=== PATIENT | female | born 1930 | race Asian ===

== ENCOUNTER 2018-07-28 23:17 | Inpatient (IN) | payer MEDICARE, OTHER ==
[~2018-07-28] VITALS: Ht 152.4 cm; Wt 50.0 kg
--- NOTE | 2018-07-28 23:21 | ERD ---
ER Documentation Chief Complaint Chief Complaint SOB HPI The patient is a 80-year-old female, presenting to the ER because of acute ALOC per EMS, who gave her Narcan 2 mg IV b/c pint point pupils with mild response according to EMS. She follows commands but limited history is obtained from the patient until the daughter came to emergency department. She does not have ALOC, complains of dyspnea for the last couple days according to the daughter, does not have fever, cough, neck pain, chest pain, abdominal pain, vomiting. She does not smoke, drink Past medical history: Chronic kidney disease, CAD, hypertension Past surgical history: Pacemaker ROS All systems reviewed and are negative except as per history of present illness. Medications Home Meds Reported Medications Citric Acid Monohydrate (Citric Acid) 100 Gm Granules, 15 ML MC 07/29/18 Nifedipine* (Nifedipine ER*) 30 Mg Tablet.sa, 30 MG PO DAILY, TAB.SA 07/29/18 Hydralazine Hcl* (Hydralazine Hcl*) 50 Mg Tab, 50 MG PO TID, #90 TAB 07/29/18 Simvastatin* (Zocor*) 20 Mg Tablet, 20 MG PO QHS, #30 TAB 07/29/18 Losartan Potassium* (Losartan Potassium*) 25 Mg Tablet, 25 MG PO DAILY, TAB 07/29/18 Docusate Sodium* (Docusate Sodium*) 100 Mg Capsule, 100 MG PO BID, #60 CAP 07/29/18 Omeprazole* (Omeprazole*) 20 Mg Capsule.dr, 20 MG PO BID, #60 CAP 07/29/18 Carvedilol* (Carvedilol*) 25 Mg Tablet, 25 MG PO BID, #60 TAB 07/29/18 Allergies Allergies: Coded Allergies: No Known Allergy (Unverified , 07/29/18) Physical Exam Vitals Vital Signs Date Temp Pulse Resp B/P (MAP) Pulse Ox O2 O2 Flow FiO2 Time Delivery Rate 07/29/18 60 16 141/67 98 Nasal 2.0 01:30 (91) Cannula 07/28/18 58 19 127/95 98 Non 12.0 23:35 (106) Rebreather 07/28/18 98.9 65 16 129/75 100 23:20 (93) Physical Exam Const: No acute distress. Head: Atraumatic. Eyes: Normal Conjunctiva.small pupils, no nystagmus ENT: Normal External Ears, Nose and Mouth. Neck: Full range of motion. No meningismus. Resp: Clear to auscultation bilaterally. Cardio: Irregularly irregular Abd: Soft, non distended, normal bowel sounds, non tender. Skin: No petechiae or rashes. Back: No midline or flank tenderness. Ext: No cyanosis, or edema. Neur: Awake and alert. No focal deficit. Follow commands. Limited Psych: Unable to perform due to her condition Result Diagram: 07/28/18232507/28/182325 Results 24 hrs Laboratory Tests Test 07/28/18 23:26 07/28/18 23:27 07/28/18 23:31 07/29/18 00:49 White Blood Count 7.7 10^3/ul Red Blood Count 2.67 10^6/ul Hemoglobin 8.2 g/dl Hematocrit 24.7 % Mean Corpuscular 92.5 fl Volume Mean Corpuscular 30.7 pg Hemoglobin Mean Corpuscular 33.2 g/dl Hemoglobin Concen t Red Cell 14.1 % Distribution Width Platelet Count 144 10^3/UL Mean Platelet 9.6 fl Volume Immature 0.300 % Granulocytes % Neutrophils % 56.0 % Lymphocytes % 26.2 % Monocytes % 9.9 % Eosinophils % 7.1 % Basophils % 0.5 % Nucleated Red 0.0 /100WBC Blood Cells % Immature 0.020 10^3/ul Granulocytes # Neutrophils # 4.3 10^3/ul Lymphocytes # 2.0 10^3/ul Monocytes # 0.8 10^3/ul Eosinophils # 0.6 10^3/ul Basophils # 0.0 10^3/ul Nucleated Red 0.0 10^3/ul Blood Cells # Prothrombin Time 12.9 Sec Prothrombin Time 1.0 Ratio INR International 0.96 Normalized Ratio Activated 35.6 Sec Partial Thrombopl ast Time Sodium Level 132 mmol/L Potassium Level 4.5 mmol/L Chloride Level 101 mmol/L Carbon Dioxide 19 mmol/L Level Anion Gap 12 Blood Urea 61 mg/dl Nitrogen Creatinine 2.29 mg/dl Est Glomerular mL/min Filtrat Rate mL/min Glucose Level 113 mg/dl Calcium Level 9.2 mg/dl Total Bilirubin 0.1 mg/dl Direct Bilirubin 0.00 mg/dl Indirect 0.1 mg/dl Bilirubin Aspartate Amino 36 IU/L Transf (AST/SGOT) Alanine 33 IU/L Aminotransferase (ALT/SGPT) Alkaline 56 IU/L Phosphatase Troponin I < 0.012 ng/ml Total Protein 6.9 g/dl Albumin 3.8 g/dl Globulin 3.10 g/dl Albumin/Globulin 1.22 Ratio Urine Color YELLOW Urine Clarity CLEAR Urine pH 5.0 Urine Specific 1.011 [place] Urine Ketones NEGATIVE mg/dL Urine Nitrite NEGATIVE mg/dL Urine Bilirubin NEGATIVE mg/dL Urine NEGATIVE mg/dL Urobilinogen Urine Leukocyte 1+ Fabien/ul Esterase Urine Microscopic 0 /HPF RBC Urine Microscopic 9 /HPF WBC Urine Hemoglobin NEGATIVE mg/dL Urine Glucose NEGATIVE mg/dL Urine Total 2+ mg/dl Protein POC Venous 0.8 mmol/L Lactate Bedside Urine pH 5.5 (LAB) Bedside Urine 2+ Protein (LAB) Bedside Urine Negative Glucose (UA) Bedside Urine Negative Ketones (LAB) Bedside Urine Negative Blood Bedside Urine Negative Nitrite (LAB) Bedside Urine 1+ Leukocyte Esteras e (L Current Medications Medications Dose Sig/Nely Start Time Status Last (Trade) Ordered Route PRN Stop Time Admin Dose Reason Admin Naloxone 2 mg ONCE ONCE 07/28/18 DC 07/28/18 HCl IV 23:30 23:33 (Narcan) 07/28/18 23:31 Ceftriaxone 50 ml @ ONCE ONCE 07/29/18 DC 07/29/18 Sodium 100 mls/hr IVPB 01:00 01:16 07/29/18 01:29 Procedures/[place] [id number] Radiology Main Line: [phone] DIAGNOSTIC IMAGING REPORT Patient: MURIEL AJ : 1930 Age: 88 Sex: F MR #: [id number] DOS: 07/28/18 2321 Ordering MD: ALEKSANDRA WONG MD Location: E/R Room/Bed: PROCEDURE: CT Head without contrast. CLINICAL INDICATION: Altered level consciousness TECHNIQUE: Continuous axial CT images were obtained from the base of skull to the vertex. No contrast was administered. The calculated radiation dose measures 634 mGy centimeters. The CTDI measures 36 mGy One or more of the following dose reduction techniques were used: Automated exposure control. Adjustment of the mA and/or kV according to patient size. Use of iterative reconstruction technique. DICOM Images are available COMPARISON: None available FINDINGS: There is volume loss and encephalomalacia involving the left occipital lobe and posterior temporal lobe, consistent with old left [employer]CH[employer] TRA[employer] territory infarct. There is mild to moderate diffuse cerebral volume loss. The ventricles are symmetric and normal in configuration. There is no mass effect or midline shift. There is no abnormal intra-axial or extra-axial fluid collection. There is no evidence of intracranial hemorrhage. There are scattered areas of decreased attenuation in the supratentorial white matter, consistent with moderate small vessel ischemic changes. There is prominent atherosclerotic vascular calcification. The bony calvarium is intact. The orbital soft tissue contents are unremarkable. There is mucosal thickening in the paranasal sinuses.. IMPRESSION: 1. Mild to moderate age related cerebral volume loss. Moderate small vessel ischemic changes. 2. Prominent atherosclerotic vascular calcification. 3. 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 4. Chronic sinusitis change. 5. No mass effect or acute intracranial bleed. RPTAT: HBST .Henry Puente MD, MD Date Time Electronically viewed and signed by .Henry Puente MD, MD on 07/29/2018 00:11 .T/ CC: ALEKSANDRA WONG MD [id number] [place] [id number] Radiology Main Line: [phone] DIAGNOSTIC IMAGING REPORT Patient: MURIEL AJ : 1930 Age: 88 Sex: F MR #: [id number] DOS: 07/28/18 2321 Ordering MD: ALEKSANDRA WONG MD Location: E/R Room/Bed: PROCEDURE: XR Chest. CLINICAL INDICATION: Possible sepsis. TECHNIQUE: Single frontal view of the chest. COMPARISON: None. FINDINGS: Left anterior chest wall single chamber cardiac pacer seen with the tip over expected location the right atrium. The cardiac pacing lead appears intact. Cardiomegaly with atherosclerotic calcifications in the thoracic aorta. Mild bibasilar atelectasis versus airspace disease, with small bilateral pleural effusions. The lungs are otherwise clear. No signs of pneumothorax are seen. The osseous structures and soft tissues are unremarkable. IMPRESSION: 1. Cardiomegaly with atherosclerotic calcifications in the thoracic aorta. 2. Mild bibasilar atelectasis versus airspace disease, with small bilateral pleural effusions. RPTAT: UU Aldair Rodriguez Physician Date Time Electronically viewed and signed by Aldair Rodriguez Physician on 07/29/2018 00:47 RS/ CC: ALEKSANDRA WONG MD [id number] EKG: Read by emergency physician Rate/Rhythm: Atrial Fibrillation 61 beats per min QRS, ST, T-waves: No ST elevation, inferior anterior lateral ST and T abnormality Impression: Abnormal EKG MEDICAL MAKING DECISION: The patient is a 88-year-old female, presenting to the ER because of possible acute encephalopathy per EMS, she was treated with Narcan 2 mg IV empirically with no response. Her daughter came to the ER, she became more coherent and was able to speak, according to the daughter she is herself. She was treated with Rocephin IV for acute cystitis The differential diagnoses considered include but are not limited to TIA, anxiety attack, panic attack, asthma, COPD, pneumonia, pulmonary embolus, pleural effusion, congestive heart failure. Departure Diagnosis: Primary Impression: Dyspnea Additional Impressions: UTI (urinary tract infection) Anemia Condition: Stable Comments I discussed the findings with the patient. I discussed the patient with the hospitalist Dr Nicolas at 3 am. who was made aware of the lab, the treatment, the patient condition. The patient is admitted to [facility] Disclaimer: Inadvertent spelling and grammatical errors are likely due to EHR/dictation software use and do not reflect on the overall quality of patient care. Also, please note that the electronic time recorded on this note does not necessarily reflect the actual time of the patient encounter. ALEKSANDRA WONG MD Jul 28, 2018 23:21
[2018-07-28] MEDS ORDERED: NALOXONE 2 MG SYG IV ONE (23:30)
[2018-07-29] VITALS (13 sets, daily range): BP systolic 144–186; BP diastolic 73–94; PULSE 60–75; RESP 18–20; Ht 152.4 cm; Wt 50.0 kg
[2018-07-29] MEDS ORDERED: CEFTRIAXONE 1 GM/50 ML (PMX) 50 ML IVPB ONE (01:00)
[2018-07-29] MEDS ORDERED: LOSA25TA12 PO (01:50)
[2018-07-29] MEDS ORDERED: DOCU-159 PO (01:50)
[2018-07-29] MEDS ORDERED: OMEP20CA16 PO (01:50)
[2018-07-29] MEDS ORDERED: CARV25TA79 PO (01:50)
[2018-07-29] MEDS ORDERED: HYDR-3672 PO (01:50)
[2018-07-29] MEDS ORDERED: NIFE30TA23 PO (01:50)
[2018-07-29] MEDS ORDERED: SIMV20TA PO (01:50)
[2018-07-29] MEDS ORDERED: [UNRECOGNIZED DRUG - CODE] MC (01:58)
[2018-07-29] MEDS ORDERED: ALBUTEROL/IPRATROPIUM (NEB) 3 ML AMP HHN PRN (05:30)
[2018-07-29] MEDS ORDERED: NACL 0.9% 3 ML SYG IV SCH (05:30)
[2018-07-29] MEDS ORDERED: ONDANSETRON 4 MG INJ IV PRN (05:30)
[2018-07-29] MEDS ORDERED: ACETAMINOPHEN 325 MG TAB PO PRN (05:30)
[2018-07-29] MEDS: PANTOPRAZOLE (EC) 40 MG TAB PO SCH ×2 (06:23→17:53)
--- NOTE | 2018-07-29 07:03 | NUR ---
EOSS RECEIVED PATIENT FROM ICU WITH NO DISTRESS,.DENIES PAIN OR RESPIRATORY DISCOMFORT.ON 2L/NC.CALL LIGHT WITHIN REACH.BED ALARM ON.WILL MONITOR CLOSELY.
[2018-07-29] MEDS: DOCUSATE SODIUM 100 MG CAP PO SCH ×2 (08:37→20:39)
[2018-07-29] MEDS: LOSARTAN 25 MG TAB PO SCH (08:37)
[2018-07-29] MEDS: CEFTRIAXONE 1 GM/50 ML (PMX) 50 ML IVPB SCH (08:38)
[2018-07-29] MEDS: HEPARIN 5,000 UNIT/1 ML VIAL SC SCH ×2 (08:44→20:56)
[2018-07-29] MEDS ORDERED: NIFEdipine (XL) 30 MG TAB PO SCH (09:00)
[2018-07-29] MEDS ORDERED: NON-FORMULARY/PATIENT OWN MED (Omeprazole* 20 MG) PO SCH (09:00)
--- NOTE | 2018-07-29 09:15 | HP ---
Date/Time of Note Date/Time of Note DATE: 07/29/18 TIME: 09:08 Assessment/Plan VTE Prophylaxis Pharmacological prophylaxis: heparin Lines/Catheters IV Catheter Type (from Nrs): Saline Lock Urinary Cath still in place: No Assessment/Plan Assessment/Plan 1. COPD exacerbation -Supplemental oxygen, bronchodilators, steroid 2. Hypertension: Adjust antihypertensive as needed 3. CKD: Monitor kidney function closely. Consider nephrology consult 4. History of pacemaker 5. Normocytic anemia: Check iron profile and FOBT to workup for iron deficiency and GI bleed. No mentioning of GI bleed or dark stool 6. UTI: -IV antibiotic -Follow-up culture result 7. Old CVA (per CT) -Continue home statin. Consider adding aspirin Result Diagram: 07/28/18 2326 07/28/18 2326 Results 24hrs Laboratory Tests Test 07/28/18 23:26 07/28/18 23:27 07/28/18 23:31 07/29/18 00:49 White Blood Count 7.7 Red Blood Count 2.67 L Hemoglobin 8.2 L Hematocrit 24.7 L Mean Corpuscular 92.5 Volume Mean Corpuscular 30.7 Hemoglobin Mean Corpuscular 33.2 Hemoglobin Concent Red Cell 14.1 Distribution Width Platelet Count 144 Mean Platelet Volume 9.6 Immature 0.300 Granulocytes % Neutrophils % 56.0 Lymphocytes % 26.2 Monocytes % 9.9 Eosinophils % 7.1 H Basophils % 0.5 Nucleated Red Blood 0.0 Cells % Immature 0.020 Granulocytes # Neutrophils # 4.3 Lymphocytes # 2.0 Monocytes # 0.8 Eosinophils # 0.6 H Basophils # 0.0 Nucleated Red Blood 0.0 Cells # Prothrombin Time 12.9 Prothrombin Time 1.0 Ratio INR International 0.96 Normalized Ratio Activated 35.6 H Partial Thromboplast Time Sodium Level 132 L Potassium Level 4.5 Chloride Level 101 Carbon Dioxide Level 19 L Anion Gap 12 Blood Urea Nitrogen 61 H Creatinine 2.29 H Est Glomerular Filtrat Rate mL/min Glucose Level 113 Calcium Level 9.2 Total Bilirubin 0.1 L Direct Bilirubin 0.00 Indirect Bilirubin 0.1 Aspartate Amino 36 Transf (AST/SGOT) Alanine 33 Aminotransferase (AL T/SGPT) Alkaline Phosphatase 56 Troponin I < 0.012 Total Protein 6.9 Albumin 3.8 Globulin 3.10 Albumin/Globulin 1.22 Ratio Urine Color YELLOW Urine Clarity CLEAR Urine pH 5.0 Urine Specific 1.011 [place] Urine Ketones NEGATIVE Urine Nitrite NEGATIVE Urine Bilirubin NEGATIVE Urine Urobilinogen NEGATIVE Urine Leukocyte 1+ H Esterase Urine Microscopic 0 RBC Urine Microscopic 9 H WBC Urine Hemoglobin NEGATIVE Urine Glucose NEGATIVE Urine Total Protein 2+ H POC Venous Lactate 0.8 Bedside Urine pH 5.5 (LAB) Bedside Urine 2+ H Protein (LAB) Bedside Urine Negative Glucose (UA) Bedside Urine Negative Ketones (LAB) Bedside Urine Blood Negative Bedside Urine Negative Nitrite (LAB) Bedside Urine 1+ H Leukocyte Esterase (L Test 07/29/18 05:30 Lactic Acid Level 0.7 Creatine Kinase 90 Creatine Kinase 1.9 Index Creatinine Kinase MB 1.73 (Mass) Troponin I < 0.012 HPI/ROS Admit Date/Time Admit Date/Time Jul 29, 2018 at 02:59 Hx of Present Illness This is an 88-year-old female with a history of hypertension, dyslipidemia, CAD, COPD, CKD, old CVA (per CT) who presents the ER for shortness of breath and generalized weakness/lethargy. Symptom has been progressively getting worse for the past 2 days or so. She denies chest pain. According to ER notes, there seems to be a confusion with EMS thinking the patient's lethargy was secondary to [place] OD for which she was given Narcan without any change. When she presented to ER, vitals were stable. Chest x-ray shows Mild bibasilar atelectasis versus airspace disease, with small bilateral pleural effusions. UA consistent with UTI. On further questioning, patient reported frequent urination every 2 hours or so recently. PMH/Family/Social Past Medical History Medical History: other (See HPI) Medications Current Medications IV Flush (NS 3 ml) 3 ml PER PROTOCOL IV ; Start 07/29/18 at 05:30 Ondansetron HCl (Zofran Inj) 4 mg Q6H PRN IV NAUSEA AND/OR VOMITING; Start 07/29/18 at 05:30 Acetaminophen (Tylenol Tab) 650 mg Q6H PRN PO PAIN LEVEL 1-3 OR FEVER; Start 07/29/18 at 05:30 Heparin Sodium (Porcine) (Heparin (5000 Units/1ml)) 5,000 unit Q12 SC Last administered on 07/29/18at 08:44; Admin Dose 5,000 UNIT; Start 07/29/18 at 09:00 Albuterol/ Ipratropium (Duoneb) 3 ml Q2H RESP THERAPY PRN HHN SHORTNESS OF BREATH; Start 07/29/18 at 05:30 Carvedilol (Coreg) 25 mg BID PO Last administered on 07/29/18at 08:37; Admin Dose 25 MG; Start 07/29/18 at 09:00 Docusate Sodium (Colace) 100 mg BID PO Last administered on 07/29/18at 08:37; Admin Dose 100 MG; Start 07/29/18 at 09:00 Hydralazine HCl (Apresoline) 50 mg TID PO Last administered on 07/29/18 08:36; Admin Dose 50 MG; Start 07/29/18 at 09:00 Losartan Potassium (Cozaar) 25 mg DAILY PO Last administered on 07/29/18 08:37; Admin Dose 25 MG; Start 07/29/18 at 09:00 Nifedipine (Procardia Xl) 30 mg DAILY PO Last administered on 07/29/18at 08:36; Admin Dose 30 MG; Start 07/29/18 at 09:00 Ceftriaxone Sodium 50 ml @ 100 mls/hr Q24H IVPB Last administered on 07/29/18at 08:38; Admin Dose 100 MLS/HR; Start 07/29/18 at 09:00 Pantoprazole (Protonix Tab) 40 mg BID@0600,1800 PO Last administered on 07/29/18at 06:23; Admin Dose 40 MG; Start 07/29/18 at 06:00 Atorvastatin Calcium (Lipitor) 10 mg DAILY@21 PO ; Start 07/29/18 at 21:00 Coded Allergies: No Known Allergy (Unverified , 07/29/18) Past Surgical History Past Surgical Hx: other (See HPI) Family History Significant Family History: no pertinent family hx Social History Alcohol Use: other Smoking Status: Unknown if ever smoked Drug Use: none Exam/Review of Systems Vital Signs Vitals Vital Signs Date Temp Pulse Resp B/P (MAP) Pulse Ox O2 O2 Flow FiO2 Time Delivery Rate 07/29/18 64 08:43 07/29/18 Nasal 2.0 08:18 Cannula 07/29/18 97.8 19 171/89 98 07:37 (116) Exam Constitutional: other (No acute distress, appears to be weak but fully arousable and answering questions appropriately) Head: normocephalic, atraumatic Eyes: EOMI, PERRL Respiratory: clear to auscultation, normal air movement Gastrointestinal: soft, non-tender Extremities: normal pulses GARLAND GUTIERREZ MD Jul 29, 2018 09:15
[2018-07-29] MEDS ORDERED: CEFTRIAXONE 1 GM/50 ML (PMX) 50 ML IVPB SCH (09:30)
[2018-07-29] MEDS ORDERED: METHYLPREDNISOLONE 40 MG INJ IV SCH (09:30)
--- NOTE | 2018-07-29 09:45 | NUR ---
PT evaluation Therapy day number 1 Evaluation Start Time 09:45 Evaluation End Time 10:45 Evaluation Total Time 60 min Subjective Denies pain Pain Scale NUMERIC Pain Intensity 0 (0-10) Patient Stated Goal for Pain Relief 0 (0-10) Pain Level Comment occasional pain in B ankles but none currently Pre Treatment Vital Signs Stable Yes - BP 150/73 Supine to Sit Minimum Assist Transfer Sit to Stand Ability Moderate Assist Bed Mobility Sit to Supine Minimum Assist Bed Transfer Ability Minimum Assist Chair Transfer Ability Minimum Assist Additional Mobility Comments min A with use of FWW Gait Assist Levels Minimum Assist Assistive Devices Front Wheel Walker Ambulation Distance 25 feet Additional Gait Comments slow samuel, requires FWW management, forward posture Static Sitting Balance Fair Dynamic Sitting Balance Fair Standing Static Balance Fair Dynamic Standing Balance Poor Additional Balance Assessments Comments requires use of FWW for stability Safety Judgement Fair Activity Tolerance Fair Equipment Present IV pump Post Treatment Pain Intensity 0 0-10 Quality Indicators SOB Upon Exertion Additional Post Treatment Comment See note Total Minutes 60 Total Units 4 PT Technical Record Comment 88 yo female presents with shortness of breath and generalized weakness. Chest x-ray shows Mild bibasilar atelectasis versus airspace disease, with small bilateral pleural effusions PMH: hypertension, dyslipidemia, CAD, COPD, CKD, old CVA (per CT) PLOF: Patient reports living with daughter in 2 story home however home alone for majority of the day. Patient reports performing stairs but requires "a lot of time" Patient reports has been "spending a lot of time in bed" Precautions: fall risk, monitor vitals S: Patient in bed, agreeable to PT evaluation. Pt cleared for activity per RN O: PT evaluation completed, pt returned back to bed following therapy intervention with call light within reach and bed alarm activated. Spoke to RN regarding pt response to activity and PT plan of care. No reports of pain, dizziness, or shortness of breath however pt visibly SOB with exertion. Pt on 1L throughout, 97% prior, 80% with activity but improves to baseline within 30 seconds. A: Patient presents with fair mobility throughout however limited secondary to endurance and profound deconditioning. patient requires substantial assist with sit to stand and has balance concerns with transfers likely due to patient reported arthritis. Patient reports with slow samuel throughout with no loss of balance. Patient could benefit from skilled inpatient PT to improve strength, endurance, and functional mobility P: progress gait as tolerated, sit to stands and stairs when appropriate Recommendation: home vs SNF based on patient progress with therapy and availability of assist at DC once medically cleared by MD. Patient could benefit from FWW for mobility however will assess with stair training.
--- NOTE | 2018-07-29 10:30 | NUR ---
patient alert and oriented, with O2 at 2L NC, respiration even, Vpae in the monitor, up with assist, had PT eval done and tolerated well. will transfer to [facility], message left with daughter Sania. Addendum: 07/29/18 at 1040 by TAZ CONTRERAS RN report given to Nelson from [facility].
--- NOTE | 2018-07-29 13:57 | PN ---
Date/Time of Note Date/Time of Note DATE: 07/29/18 TIME: 13:55 Assessment/Plan VTE Prophylaxis Risk score (from Ns)>0 risk: 5 SCD applied (from Ns): Yes Pharmacological prophylaxis: heparin Lines/Catheters IV Catheter Type (from Nrs): Saline Lock Urinary Cath still in place: No Assessment/Plan Assessment/Plan 1. COPD exacerbation, supplemental oxygen, bronchodilators, solumedrol 2. Hypertension, patient is taking nifedipine 60 mg qam and 30 mg qpm at home, change it to 90 mg po daily 3. CKD: Monitor kidney function closely 4. History of pacemaker 5. Normocytic anemia, CKD related, follow up with H/H 7. UTI: rocephin 8. Old CVA (per CT) 9. Dyslipidemia, on statin 10. DVT prophylaxis: heparin sq Result Diagram: 07/28/186 07/28/18 2326 Results 24hrs Laboratory Tests Test 07/28/18 23:26 07/28/18 23:27 07/28/18 23:31 07/29/18 00:49 White Blood Count 7.7 Red Blood Count 2.67 L Hemoglobin 8.2 L Hematocrit 24.7 L Mean Corpuscular 92.5 Volume Mean Corpuscular 30.7 Hemoglobin Mean Corpuscular 33.2 Hemoglobin Concent Red Cell 14.1 Distribution Width Platelet Count 144 Mean Platelet Volume 9.6 Immature 0.300 Granulocytes % Neutrophils % 56.0 Lymphocytes % 26.2 Monocytes % 9.9 Eosinophils % 7.1 H Basophils % 0.5 Nucleated Red Blood 0.0 Cells % Immature 0.020 Granulocytes # Neutrophils # 4.3 Lymphocytes # 2.0 Monocytes # 0.8 Eosinophils # 0.6 H Basophils # 0.0 Nucleated Red Blood 0.0 Cells # Prothrombin Time 12.9 Prothrombin Time 1.0 Ratio INR International 0.96 Normalized Ratio Activated 35.6 H Partial Thromboplast Time Sodium Level 132 L Potassium Level 4.5 Chloride Level 101 Carbon Dioxide Level 19 L Anion Gap 12 Blood Urea Nitrogen 61 H Creatinine 2.29 H Est Glomerular Filtrat Rate mL/min Glucose Level 113 Calcium Level 9.2 Total Bilirubin 0.1 L Direct Bilirubin 0.00 Indirect Bilirubin 0.1 Aspartate Amino 36 Transf (AST/SGOT) Alanine 33 Aminotransferase (AL T/SGPT) Alkaline Phosphatase 56 Troponin I < 0.012 Total Protein 6.9 Albumin 3.8 Globulin 3.10 Albumin/Globulin 1.22 Ratio Urine Color YELLOW Urine Clarity CLEAR Urine pH 5.0 Urine Specific 1.011 [place] Urine Ketones NEGATIVE Urine Nitrite NEGATIVE Urine Bilirubin NEGATIVE Urine Urobilinogen NEGATIVE Urine Leukocyte 1+ H Esterase Urine Microscopic 0 RBC Urine Microscopic 9 H WBC Urine Hemoglobin NEGATIVE Urine Glucose NEGATIVE Urine Total Protein 2+ H POC Venous Lactate 0.8 Bedside Urine pH 5.5 (LAB) Bedside Urine 2+ H Protein (LAB) Bedside Urine Negative Glucose (UA) Bedside Urine Negative Ketones (LAB) Bedside Urine Blood Negative Bedside Urine Negative Nitrite (LAB) Bedside Urine 1+ H Leukocyte Esterase (L Test 07/29/18 05:30 07/29/18 10:58 Lactic Acid Level 0.7 Creatine Kinase 90 79 Creatine Kinase 1.9 1.6 Index Creatinine Kinase MB 1.73 1.23 (Mass) Troponin I < 0.012 < 0.012 Subjective 24 Hr Interval Summary Free Text/Dictation weak, shortness of breath on minimal exertion Exam/Review of Systems Vital Signs Vitals Vital Signs Date Temp Pulse Resp B/P (MAP) Pulse Ox O2 O2 Flow FiO2 Time Delivery Rate 07/29/18 98.2 65 18 185/94 98 12:11 (124) 07/29/18 Nasal 2.0 08:18 Cannula Exam Constitutional: alert, oriented, well developed Psych: no complaints, nl mood/affect Head: normocephalic, atraumatic Eyes: nl conjunctiva, EOMI, nl lids ENMT: nl external ears & nose, nl lips & teeth, nl nasal mucosa & septum Neck: supple, non-tender Respiratory: diminished breath sounds Cardiovascular: regular rate and rhythm, nl pulses; No bruits, No diastolic murmur, No edema, No gallop, No irregular rhythm, No jugular venous distention (JVD), No murmurs/extra sounds, No rub, No systolic murmur, No S3, No S4, No other Gastrointestinal: soft, nl liver, spleen, non-tender Musculoskeletal: nl extremities to inspection Extremities: normal pulses; No calf tenderness, No cyanosis, No clubbing, No edema, No pitting pedal edema, No palpable cord, No tenderness, No other Neurological: RECONSTRUCTIVE DENTIST II-XII intact, nl mental status, nl speech, nl strength Medications Medications Current Medications IV Flush (NS 3 ml) 3 ml PER PROTOCOL IV ; Start 07/29/18 at 05:30 Ondansetron HCl (Zofran Inj) 4 mg Q6H PRN IV NAUSEA AND/OR VOMITING; Start 07/29/18 at 05:30 Acetaminophen (Tylenol Tab) 650 mg Q6H PRN PO PAIN LEVEL 1-3 OR FEVER; Start 07/29/18 at 05:30 Heparin Sodium (Porcine) (Heparin (5000 Units/1ml)) 5,000 unit Q12 SC Last administered on 07/29/18 08:44; Admin Dose 5,000 UNIT; Start 07/29/18 at 09:00 Albuterol/ Ipratropium (Duoneb) 3 ml Q2H RESP THERAPY PRN HHN SHORTNESS OF BREATH; Start 07/29/18 at 05:30 Carvedilol (Coreg) 25 mg BID PO Last administered on 07/29/18 08:37; Admin Dose 25 MG; Start 07/29/18 at 09:00 Docusate Sodium (Colace) 100 mg BID PO Last administered on 07/29/18 08:37; Admin Dose 100 MG; Start 07/29/18 at 09:00 Hydralazine HCl (Apresoline) 50 mg TID PO Last administered on 07/29/18 12:13; Admin Dose 50 MG; Start 07/29/18 at 09:00 Losartan Potassium (Cozaar) 25 mg DAILY PO Last administered on 07/29/18 08:37; Admin Dose 25 MG; Start 07/29/18 at 09:00 Nifedipine (Procardia Xl) 30 mg DAILY PO Last administered on 07/29/18 08:36; Admin Dose 30 MG; Start 07/29/18 at 09:00 Ceftriaxone Sodium 50 ml @ 100 mls/hr Q24H IVPB Last administered on 07/29/18 08:38; Admin Dose 100 MLS/HR; Start 07/29/18 at 09:00 Pantoprazole (Protonix Tab) 40 mg BID@0600,1800 PO Last administered on 06:23; Admin Dose 40 MG; Start 07/29/18 at 06:00 Atorvastatin Calcium (Lipitor) 10 mg DAILY@21 PO ; Start 07/29/18 at 21:00 Methylprednisolone Sodium Succinate (Solu-Medrol) 40 mg DAILY IV Last administered on 07/29/18at 09:35; Admin Dose 40 MG; Start 07/29/18 at 09:30; Stop 08/01/18 at 09:00 UNA GAFFNEY MD Jul 29, 2018 13:57
[2018-07-29] MEDS: METHYLPREDNISOLONE 40 MG INJ IV SCH ×2 (14:48→21:02)
--- NOTE | 2018-07-29 18:47 | NUR ---
RN NOTE PT IS STABLE CONDITION , NO ACUTE DISTRESS NOTED , PT HEARD OF HEARING , COOPERATIVE . USING BED SIDE COMMODE , RECEIVING PT FROM 529 THIS AM .
[2018-07-29] MEDS: ATORVASTATIN 10 MG TAB PO SCH (20:39)
[2018-07-29] MEDS ORDERED: NON-FORMULARY/PATIENT OWN MED (Simvastatin* (Zocor*) 20 MG) PO SCH (21:00)
[2018-07-30] VITALS (11 sets, daily range): BP systolic 150–189; BP diastolic 65–88; PULSE 59–65; RESP 17–20
[2018-07-30] MEDS ORDERED: hydrALAzine 20 MG INJ IV ONE (04:30)
[2018-07-30] MEDS: METHYLPREDNISOLONE 40 MG INJ IV SCH ×3 (05:57→21:34)
[2018-07-30] MEDS: PANTOPRAZOLE (EC) 40 MG TAB PO SCH ×2 (05:57→18:36)
--- NOTE | 2018-07-30 06:15 | NUR ---
EOSS: Pt. a/o x3. Pt able to use bed side commode with assist. Skin kept clean, dry, and intact. Hourly rounding completed. Bed in lowest position, call light within reach, bed alarm on. Pt. BP 177/81 @0400, notified Dr. Nicolas. Hydralazine 10mg IV X1 given. BP 165/85 @0600. Pt slept comfortably throughout shift, no complaints of pain. All needs met and attended too. Will endorse continuity of care to day shift.
[2018-07-30] MEDS: LOSARTAN 25 MG TAB PO SCH ×2 (08:20→21:36)
[2018-07-30] MEDS: DOCUSATE SODIUM 100 MG CAP PO SCH ×2 (08:20→21:35)
[2018-07-30] MEDS: CEFTRIAXONE 1 GM/50 ML (PMX) 50 ML IVPB SCH (08:21)
[2018-07-30] MEDS: HEPARIN 5,000 UNIT/1 ML VIAL SC SCH ×2 (08:31→21:49)
[2018-07-30] MEDS ORDERED: NIFEdipine (XL) 90 MG TAB PO SCH (09:00)
--- NOTE | 2018-07-30 12:05 | NUR ---
PT NOTE [facility] Patient: Tiffanie Troncoso : 1930 Age/Sex: 88/F Unit#: [id number] Room/Bed: 620/A User: Tarah West PTA Date: 07/30/18 12:05 Type: PT Technical Record Therapy day number 2 Subjective Denies pain Pain Scale NUMERIC Pain Intensity 0 (0-10) Patient Stated Goal for Pain Relief 0 (0-10) Pain Level Comment denied pain Pre Treatment Vital Signs Stable Yes - See PT note Transfer Training Start Time 11:12 Supine to Sit Minimum Assist Transfer Sit to Stand Ability Minimum Assist Bed Mobility Sit to Supine Minimum Assist Bed Transfer Ability Minimum Assist Chair Transfer Ability Minimum Assist Transfer Training End Time 11:40 Total Transfer Training Time 28 min (8-127) Gait Training Start Time 11:40 Gait Assist Levels Contact Guard Assist Assistive Devices Front Wheel Walker Ambulation Distance 160 feet Additional Gait Comments slow, reciprocal pattern, forward posture Gait Training End Time 12:05 Total Gait Training Treatment Time 25 min (8-127) Static Sitting Balance Fair plus Dynamic Sitting Balance Fair plus Standing Static Balance Fair Dynamic Standing Balance Fair Additional Balance Assessments Comments FWW Safety Judgement Fair Activity Tolerance Fair Equipment Present IV pump Additional Equipment Present 2L O2 via NC Post Treatment Pain Intensity 0 0-10 Quality Indicators SOB Upon Exertion Total Treament Time 53 min (8-127) Total Minutes 53 Total Units 4 PT Technical Record Comment S: HEMANTH Mcintosh cleared pt for PT. Pt denied pain and agreeable to tx. Pt is [place]. O: Received pt in semifowler. See above for assist levels. Pretx VS; 182/82 63bpm 95% on 2L O2 via NC. Assisted to bedside commode and pt independent w/ pericare. BP EOB; 178/86. BP on bedside commode; 175/81. Pt asymptomatic. Gait training x 160' and presented with slow, reciprocal pattern and forward posture. Returned pt back to room/bed. Positioned pt to comfort in semifowler. Call light/phone within reach. Bed alarm on. Needs met. Post tx VS; 204/83 95% on 2L O2 via NC and 69bpm. Informed RN of pt status, PT activities and high BP. A: Fair tolerance to tx. Monitor BP. O2 supplement throughout tx P; Continue w/ POC and progress as tolerated
--- NOTE | 2018-07-30 12:28 | PN ---
Date/Time of Note Date/Time of Note DATE: 07/30/18 TIME: 12:24 Assessment/Plan VTE Prophylaxis Risk score (from Ns)>0 risk: 3 SCD applied (from [facility]): Yes SCD contraindicated: low risk/ambulating Pharmacological prophylaxis: heparin Lines/Catheters IV Catheter Type (from [facility] Saline Lock Urinary Cath still in place: No Assessment/Plan Problems: (1) COPD (chronic obstructive pulmonary disease) Status: Chronic Comment: This is listed but we do not have any data for it and given the patient's declining any memory of being treated we will check a bedside spirometry. In the meantime we will go ahead and continue with the treatment and add in Spiriva Qualifiers: COPD type: unspecified COPD Qualified Codes: J44.9 - Chronic obstructive pulmonary disease, unspecified (2) Chronic kidney disease (CKD) stage G3b/A3, moderately decreased glomerular filtration rate (GFR) between 30-44 mL/min/1.73 square meter and albuminuria creatinine ratio greater than 300 mg/g Status: Chronic Comment: Is somewhat dehydrated but has chronic kidney disease although we do not have a baseline on her. Going ahead and rehydrate. (3) Essential hypertension Status: Chronic Comment: To simplify his regimen will need to move some stuff around. Given the possibility COPD using the non-cardioselective beta-carl is less ideal L be transitioned over to cardioselective beta-carl. In addition the angiotensin II receptor carl will be used in the nifedipine will be decreased and replaced (4) Pacemaker Status: Chronic Comment: Noted. (5) Chronic left arterial ischemic stroke, DEPUTY K 9 (posterior cerebral artery) Status: Chronic Comment: Noted. Antiplatelet agents when the patient's more stable (6) Acute prerenal azotemia Status: Acute Comment: Hydrate (7) UTI (urinary tract infection) Status: Acute Comment: Continue antibiotics and recheck Qualifiers: Urinary tract infection type: acute cystitis Hematuria presence: without hematuria Qualified Codes: N30.00 - Acute cystitis without hematuria (8) Anemia Status: Acute Result Diagram: 07/30/18 0540 07/30/18 0540 Results 24hrs Laboratory Tests Test 07/30/18 05:40 White Blood Count 7.7 Red Blood Count 2.98 L Hemoglobin 9.0 L Hematocrit 27.8 L Mean Corpuscular Volume 93.3 Mean Corpuscular Hemoglobin 30.2 Mean Corpuscular Hemoglobin Concent 32.4 Red Cell Distribution Width 14.1 Platelet Count 172 Mean Platelet Volume 10.0 Immature Granulocytes % 0.500 H Neutrophils % 74.3 Lymphocytes % 18.7 Monocytes % 6.4 Eosinophils % 0.0 Basophils % 0.1 Nucleated Red Blood Cells % 0.0 Immature Granulocytes # 0.040 H Neutrophils # 5.7 Lymphocytes # 1.4 Monocytes # 0.5 Eosinophils # 0.0 Basophils # 0.0 Nucleated Red Blood Cells # 0.0 Sodium Level 136 Potassium Level 4.7 Chloride Level 107 Carbon Dioxide Level 18 L Anion Gap 11 Blood Urea Nitrogen 57 H Creatinine 2.24 H Est Glomerular Filtrat Rate mL/min Glucose Level 111 Calcium Level 9.7 Total Bilirubin 0.0 L Direct Bilirubin 0.00 Indirect Bilirubin 0.0 Aspartate Amino Transf (AST/SGOT) 46 Alanine Aminotransferase (ALT/SGPT) 46 Alkaline Phosphatase 54 Total Protein 7.1 Albumin 3.9 Globulin 3.20 Albumin/Globulin Ratio 1.21 Subjective 24 Hr Interval Summary Free Text/Dictation Patient sitting up and eating in bed. Constitutional: no complaints (Denies fevers chills or sweats) Respiratory: no complaints (He has any cough or shortness of breath. She does report a history of smoking but denies any history of ever having been treated for lung issues) Cardiovascular: no complaints Gastrointestinal: no complaints Musculoskeletal: other (Bilateral arthritic knee pain) Exam/Review of Systems Vital Signs Vitals Vital Signs Date Temp Pulse Resp B/P (MAP) Pulse Ox O2 O2 Flow FiO2 Time Delivery Rate 07/30/18 98.2 17 189/88 97 11:03 (121) 07/30/18 59 08:00 07/30/18 Nasal 2.0 08:00 Cannula Intake and Output 07/29/18 07/29/18 07/30/18 1515:00 23:00 07:00 IntakeIntake Total 100 ml 550 ml 200 ml BalanceBalance 100 ml 550 ml 200 ml Exam Constitutional: alert, oriented Respiratory: clear to auscultation, diminished breath sounds Cardiovascular: regular rate and rhythm, nl pulses Musculoskeletal: nl extremities to inspection Medications Medications Current Medications IV Flush (NS 3 ml) 3 ml PER PROTOCOL IV ; Start 07/29/18 at 05:30 Ondansetron HCl (Zofran Inj) 4 mg Q6H PRN IV NAUSEA AND/OR VOMITING; Start 07/29/18 at 05:30 Acetaminophen (Tylenol Tab) 650 mg Q6H PRN PO PAIN LEVEL 1-3 OR FEVER; Start 07/29/18 at 05:30 Heparin Sodium (Porcine) (Heparin (5000 Units/1ml)) 5,000 unit Q12 SC Last administered on 07/30/18 08:31; Admin Dose 5,000 UNIT; Start 07/29/18 at 09:00 Albuterol/ Ipratropium (Duoneb) 3 ml Q2H RESP THERAPY PRN HHN SHORTNESS OF BREATH; Start 07/29/18 at 05:30 Carvedilol (Coreg) 25 mg BID PO Last administered on 07/30/18 08:20; Admin Dose 25 MG; Start 07/29/18 at 09:00 Docusate Sodium (Colace) 100 mg BID PO Last administered on 07/30/18 08:20; Admin Dose 100 MG; Start 07/29/18 at 09:00 Hydralazine HCl (Apresoline) 50 mg TID PO Last administered on 07/30/18 08:20; Admin Dose 50 MG; Start 07/29/18 at 09:00 Losartan Potassium (Cozaar) 25 mg DAILY PO Last administered on 07/30/18 08:20; Admin Dose 25 MG; Start 07/29/18 at 09:00 Ceftriaxone Sodium 50 ml @ 100 mls/hr Q24H IVPB Last administered on 07/30/18 08:21; Admin Dose 100 MLS/HR; Start 07/29/18 at 09:00 Pantoprazole (Protonix Tab) 40 mg BID@0600,1800 PO Last administered on 07/30/18 05:57; Admin Dose 40 MG; Start 07/29/18 at 06:00 Atorvastatin Calcium (Lipitor) 10 mg DAILY@21 PO Last administered on 07/29/18 20:39; Admin Dose 10 MG; Start 07/29/18 at 21:00 Nifedipine (Procardia Xl) 90 mg DAILY PO Last administered on 07/30/18 08:20; Admin Dose 90 MG; Start 07/30/18 at 09:00 Methylprednisolone Sodium Succinate (Solu-Medrol) 20 mg Q8 IV Last administered on 07/30/18 05:57; Admin Dose 20 MG; Start 07/29/18 at 14:30 LUIS CAIN MD Jul 30, 2018 12:28
[2018-07-30] MEDS ORDERED: LACTATED RINGER'S 500 ML IV ONE (12:30)
[2018-07-30] MEDS: CELECOXIB 100 MG CAP PO SCH ×2 (13:46→21:36)
[2018-07-30] MEDS: ATORVASTATIN 10 MG TAB PO SCH (21:34)
[2018-07-30] MEDS: METOPROLOL (XL) 100 MG TAB PO SCH (21:35)
[2018-07-31] VITALS (12 sets, daily range): BP systolic 155–184; BP diastolic 67–86; PULSE 60–74; RESP 17–19
--- NOTE | 2018-07-31 04:42 | NUR ---
BP have been in the 150's systolic this shift, V paced on the monitor, no distress noted, no sob even with activity, no pain verbalized. Have been on the commode 5x this shift , so far, able to stand and take a few steps to the commode w/ standby assist w/ no sob noted.
[2018-07-31] MEDS: METHYLPREDNISOLONE 40 MG INJ IV SCH (05:35)
[2018-07-31] MEDS: PANTOPRAZOLE (EC) 40 MG TAB PO SCH ×2 (05:36→17:46)
[2018-07-31] MEDS: DOCUSATE SODIUM 100 MG CAP PO SCH ×2 (08:46→22:45)
[2018-07-31] MEDS: CELECOXIB 100 MG CAP PO SCH ×2 (08:46→22:45)
[2018-07-31] MEDS: LOSARTAN 25 MG TAB PO SCH (08:46)
[2018-07-31] MEDS: METOPROLOL (XL) 100 MG TAB PO SCH ×2 (08:46→22:45)
[2018-07-31] MEDS: TIOTROPIUM 18 MCG CAPSULE INHA DEV INH SCH (08:47)
[2018-07-31] MEDS: CEFTRIAXONE 1 GM/50 ML (PMX) 50 ML IVPB SCH (08:47)
[2018-07-31] MEDS: HEPARIN 5,000 UNIT/1 ML VIAL SC SCH ×2 (08:57→23:03)
--- NOTE | 2018-07-31 09:47 | PN ---
Date/Time of Note Date/Time of Note DATE: 07/31/18 TIME: 09:44 Assessment/Plan VTE Prophylaxis Risk score (from Ns)>0 risk: 3 SCD applied (from Ns): Yes SCD contraindicated: low risk/ambulating Pharmacological prophylaxis: heparin Lines/Catheters IV Catheter Type (from [facility] Saline Lock Urinary Cath still in place: No Assessment/Plan Problems: (1) Essential hypertension Status: Chronic Comment: Continue to adjust blood pressure medications. Improved with usage of a more cardioselective beta-blockade, add in separate alpha-carl to help cover for this. Make the hydralazine twice daily given her age and renal function. Increase the dosage of angiotensin II receptor carl to full therapeutic dosing. (2) COPD (chronic obstructive pulmonary disease) Status: Chronic Comment: Marked improvement with adoption of enhanced pharmaceutical measures Qualifiers: COPD type: unspecified COPD Qualified Codes: J44.9 - Chronic obstructive pulmonary disease, unspecified (3) Chronic kidney disease (CKD) stage G3b/A3, moderately decreased glomerular filtration rate (GFR) between 30-44 mL/min/1.73 square meter and albuminuria creatinine ratio greater than 300 mg/g Status: Chronic Comment: Stable at this time. (4) Pacemaker Status: Chronic Comment: Noted in operational. (5) UTI (urinary tract infection) Status: Acute Comment: This was mixed gram-positive nakia. Resolved issue Qualifiers: Urinary tract infection type: acute cystitis Hematuria presence: without hematuria Qualified Codes: N30.00 - Acute cystitis without hematuria (6) Chronic left arterial ischemic stroke, [employer] MARKETING OFFIC[employer] (posterior cerebral artery) Status: Chronic Comment: Noted and stable. Result Diagram: 07/30/18 0540 07/31/18 0520 Results 24hrs Laboratory Tests Test 07/31/18 05:20 Sodium Level 134 L Potassium Level 5.2 H Chloride Level 106 Carbon Dioxide Level 17 L Anion Gap 11 Blood Urea Nitrogen 68 H Creatinine 2.37 H Est Glomerular Filtrat Rate mL/min Glucose Level 108 Calcium Level 9.5 Total Bilirubin 0.0 L Direct Bilirubin 0.00 Indirect Bilirubin 0.0 Aspartate Amino Transf (AST/SGOT) 38 Alanine Aminotransferase (ALT/SGPT) 44 Alkaline Phosphatase 47 Total Protein 6.5 Albumin 3.6 Globulin 2.90 Albumin/Globulin Ratio 1.24 Subjective 24 Hr Interval Summary Free Text/Dictation Patient reports that her breathing is much better Constitutional: no complaints Respiratory: no complaints Cardiovascular: no complaints Gastrointestinal: no complaints Genitourinary: no complaints Exam/Review of Systems Vital Signs Vitals Vital Signs Date Temp Pulse Resp B/P (MAP) Pulse Ox O2 O2 Flow FiO2 Time Delivery Rate 07/31/18 64 08:41 07/31/18 98.6 17 181/86 98 07:47 (117) 07/31/18 Nasal 2.0 07:46 Cannula Intake and Output 07/30/18 07/30/18 07/31/18 1515:00 23:00 07:00 IntakeIntake Total 660 ml OutputOutput Total 1500 ml BalanceBalance -840 ml Exam Constitutional: alert, oriented Respiratory: clear to auscultation (Improved versus yesterday), normal air movement Cardiovascular: regular rate and rhythm, nl pulses Gastrointestinal: soft, nl liver, spleen, non-tender Medications Medications Current Medications IV Flush (NS 3 ml) 3 ml PER PROTOCOL IV ; Start 07/29/18 at 05:30 Ondansetron HCl (Zofran Inj) 4 mg Q6H PRN IV NAUSEA AND/OR VOMITING; Start 07/29/18 at 05:30 Acetaminophen (Tylenol Tab) 650 mg Q6H PRN PO PAIN LEVEL 1-3 OR FEVER; Start 07/29/18 at 05:30 Heparin Sodium (Porcine) (Heparin (5000 Units/1ml)) 5,000 unit Q12 SC Last a dministered on 07/31/18at 08:57; Admin Dose 5,000 UNIT; Start 07/29/18 at 09:00 Albuterol/ Ipratropium (Duoneb) 3 ml Q2H RESP THERAPY PRN HHN SHORTNESS OF BREATH; Start 07/29/18 at 05:30 Docusate Sodium (Colace) 100 mg BID PO Last administered on 07/31/18 08:46; Admin Dose 100 MG; Start 07/29/18 at 09:00 Hydralazine HCl (Apresoline) 50 mg TID PO Last administered on 07/31/18 08:46; Admin Dose 50 MG; Start 07/29/18 at 09:00 Ceftriaxone Sodium 50 ml @ 100 mls/hr Q24H IVPB Last administered on 07/31/18at 08:47; Admin Dose 100 MLS/HR; Start 07/29/18 at 09:00 Pantoprazole (Protonix Tab) 40 mg BID@0600,1800 PO Last administered on 07/31/18at 05:36; Admin Dose 40 MG; Start 07/29/18 at 06:00 Atorvastatin Calcium (Lipitor) 10 mg DAILY@21 PO Last administered on 07/30/18at 21:34; Admin Dose 10 MG; Start 07/29/18 at 21:00 Methylprednisolone Sodium Succinate (Solu-Medrol) 20 mg Q8 IV Last administered on 07/31/18at 05:35; Admin Dose 20 MG; Start 07/29/18 at 14:30 Metoprolol Succinate (Toprol Xl) 100 mg BID PO Last administered on 07/31/18at 08:46; Admin Dose 100 MG; Start 07/30/18 at 21:00 Tiotropium [place] (Spiriva) 1 inh DAILY INH Last administered on 07/31/18at 08:47; Admin Dose 1 INH; Start 07/31/18 at 09:00 Celecoxib (Celebrex) 100 mg BID PO Last administered on 07/31/18at 08:46; Admin Dose 100 MG; Start 07/30/18 at 13:00 Losartan Potassium (Cozaar) 50 mg BID PO ; Start 07/31/18 at 21:00 Losartan Potassium (Cozaar) 25 mg ONCE ONCE PO ; Start 07/31/18 at 10:00; Stop 07/31/18 at 10:01 Doxazosin Mesylate (Cardura) 1 mg ONCE ONCE PO ; Start 07/31/18 at 10:00; Stop 07/31/18 at 10:01 Doxazosin Mesylate (Cardura) 2 mg HS PO ; Start 07/31/18 at 21:00 LUIS CAIN MD Jul 31, 2018 09:47
[2018-07-31] MEDS ORDERED: LOSARTAN 25 MG TAB PO ONE (10:00)
[2018-07-31] MEDS ORDERED: LACTATED RINGER'S 500 ML IV ONE (10:00)
[2018-07-31] MEDS ORDERED: DOXAZOSIN 1 MG TAB PO ONE (10:00)
[2018-07-31] MEDS ORDERED: DOXAZOSIN 4 MG TAB PO SCH (11:35)
--- NOTE | 2018-07-31 19:40 | NUR ---
RN NOTE BP STILL UNCONTROLLED , DR CAIN IS AWARE .
[2018-07-31] MEDS ORDERED: DOXAZOSIN 2 MG TAB PO SCH (21:00)
[2018-07-31] MEDS ORDERED: LOSARTAN 25 MG TAB PO SCH (21:00)
[2018-07-31] MEDS: ATORVASTATIN 10 MG TAB PO SCH (22:46)
[2018-08-01] VITALS (12 sets, daily range): BP systolic 155–187; BP diastolic 72–79; PULSE 57–70; RESP 18–19
[2018-08-01] MEDS ORDERED: LOSARTAN 25 MG TAB ONE (00:14)
[2018-08-01] MEDS ORDERED: LOSARTAN 50 MG TAB ONE (00:15)
[2018-08-01] MEDS: LOSARTAN 50 MG TAB PO SCH ×3 (00:23→21:06)
[2018-08-01] MEDS: PANTOPRAZOLE (EC) 40 MG TAB PO SCH ×2 (06:15→17:30)
--- NOTE | 2018-08-01 06:41 | NUR ---
BP was 152/ 79 on the right arm, pt. had no complaints , pt. slept comfortably.
[2018-08-01] MEDS: CELECOXIB 100 MG CAP PO SCH ×2 (08:12→21:03)
[2018-08-01] MEDS: DOCUSATE SODIUM 100 MG CAP PO SCH ×2 (08:12→21:05)
[2018-08-01] MEDS: METHYLPREDNISOLONE 40 MG INJ IV SCH (08:12)
[2018-08-01] MEDS: METOPROLOL (XL) 100 MG TAB PO SCH ×2 (08:13→21:05)
[2018-08-01] MEDS: HEPARIN 5,000 UNIT/1 ML VIAL SC SCH ×2 (08:21→21:09)
[2018-08-01] MEDS: TIOTROPIUM 18 MCG CAPSULE INHA DEV INH SCH (08:24)
--- NOTE | 2018-08-01 10:30 | NUR ---
PRELIMINARY BEDSIDE SPIROMETRY RESULTS ARE IN PATIENTS PAPER CHART UNDER PROGRESS REPORTS
--- NOTE | 2018-08-01 11:37 | PN ---
Date/Time of Note Date/Time of Note DATE: 08/01/18 TIME: 11:35 Assessment/Plan VTE Prophylaxis Risk score (from Ns)>0 risk: 3 SCD applied (from Ns): Yes Pharmacological prophylaxis: heparin Lines/Catheters IV Catheter Type (from [facility]): Saline Lock Urinary Cath still in place: No Assessment/Plan Hospital Course SUBJECTIVE: Continues to have dyspnea with minimal exertion. OBJECTIVE: Physical Exam General: Adequately build 88 year-old female lying in bed in mild respiratory distress. HEENT: Normocephalic, atraumatic. Eyes: Anicteric sclerae, conjunctivae clear. ENT: Nasal septum midline, oral mucosa moist. Neck supple, JVD noticed. Respiratory: Bilaterally diminished breath sounds. Minimal use of accessory muscles of respiration. Cardiovascular: S1, S2 heard. Regular rate and rhythm. Abdomen: Soft, nontender, and nondistended. Bowel sounds positive in all 4 quadrants. Genitourinary: Deferred. Extremities: No cyanosis, no clubbing, no edema. Peripheral pulses palpable. Neurologic: Cranial nerves II through XII grossly intact. The patient is awake, alert, and oriented. Skin: Normal skin turgor. No skin rashes. Labs & Vitals per chart ASSESSMENT & PLAN This is an 88-year-old female with past medical history of COPD, hypertension, chronic kidney disease, normocytic anemia, CVA, and history of pacemaker placement who came to the emergency room with altered level of consciousness and dyspnea, who was admitted to inpatient setting for further treatment and evaluation. 1. Acute encephalopathy. -Etiology could be toxic metabolic in origin. -Brain CT scan showing old left posterior cerebral artery territory infarct and no evidence of any acute infarcts. -Resolved. 2. COPD exacerbation. -Continue inhaled bronchodilators NIMISHA and LABA. -Continue tapering dose of steroids. -Continue inhaled anticholinergics. 3. Hypertension. -Continue antihypertensives -Adjust antihypertensives to obtain optimal blood pressure control. 4. Chronic kidney disease. -Monitor renal function closely. 5. Normocytic anemia. -Most probably anemia of chronic disease. -Monitor H&H closely. 6. History of pacemaker. -Details unclear. -Obtain 2D echocardiogram to evaluate left ventricular ejection fraction. 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 -Continue enteric coated ASA and statins. 8. Fluids, electrolytes, and nutrition. -Low-cholesterol diet. 9. DVT prophylaxis. -Subcutaneous heparin. 10. Plan. -Continue inhaled bronchodilators. -Continue supplemental oxygen. -Obtain 2D echocardiogram to evaluate the left ventricular ejection fraction. -Repeat chest x-ray. -Await clinical improvement. The patient was seen in collaboration with Dr. James. Result Diagram: 07/30/18 0540 08/01/18 0500 Results 24hrs Laboratory Tests Test 08/01/18 05:00 Sodium Level 133 L Potassium Level 4.7 Chloride Level 103 Carbon Dioxide Level 17 L Anion Gap 13 Blood Urea Nitrogen 73 H Creatinine 2.37 H Est Glomerular Filtrat Rate mL/min Glucose Level 97 Calcium Level 8.6 Exam/Review of Systems Vital Signs Vitals Vital Signs Date Temp Pulse Resp B/P (MAP) Pulse Ox O2 O2 Flow FiO2 Time Delivery Rate 08/01/18 Nasal 2.0 08:00 Cannula 08/01/18 60 08:00 08/01/18 97.8 19 187/79 98 07:36 (115) 08/01/18 28 05:00 Intake and Output 07/31/18 07/31/18 08/01/18 1515:00 23:00 07:00 IntakeIntake Total 500 ml 650 ml OutputOutput Total 1200 ml BalanceBalance 500 ml -550 ml Medications Medications Current Medications IV Flush (NS 3 ml) 3 ml PER PROTOCOL IV ; Start 07/29/18 at 05:30 Ondansetron HCl (Zofran Inj) 4 mg Q6H PRN IV NAUSEA AND/OR VOMITING; Start 07/29/18 at 05:30 Acetaminophen (Tylenol Tab) 650 mg Q6H PRN PO PAIN LEVEL 1-3 OR FEVER; Start 07/29/18 at 05:30 Heparin Sodium (Porcine) (Heparin (5000 Units/1ml)) 5,000 unit Q12 SC Last administered on 08/01/18at 08:21; Admin Dose 5,000 UNIT; Start 07/29/18 at 09:00 Albuterol/ Ipratropium (Duoneb) 3 ml Q2H RESP THERAPY PRN HHN SHORTNESS OF BREATH; Start 07/29/18 at 05:30 Docusate Sodium (Colace) 100 mg BID PO Last administered on 08/01/18at 08:12; Admin Dose 100 MG; Start 07/29/18 at 09:00 Pantoprazole (Protonix Tab) 40 mg BID@0600,1800 PO Last administered on 08/01/18at 06:15; Admin Dose 40 MG; Start 07/29/18 at 06:00 Atorvastatin Calcium (Lipitor) 10 mg DAILY@21 PO Last administered on 07/31/18at 22:46; Admin Dose 10 MG; Start 07/29/18 at 21:00 Metoprolol Succinate (Toprol Xl) 100 mg BID PO Last administered on 08/01/18at 08:13; Admin Dose 100 MG; Start 07/30/18 at 21:00 Tiotropium [place] (Spiriva) 1 inh DAILY INH Last administered on 08/01/18at 08:24; Admin Dose 1 INH; Start 07/31/18 at 09:00 Celecoxib (Celebrex) 100 mg BID PO Last administered on 08/01/18at 08:12; Admin Dose 100 MG; Start 07/30/18 at 13:00 Hydralazine HCl (Apresoline) 100 mg BID PO Last administered on 08/01/18at 08:12; Admin Dose 100 MG; Start 07/31/18 at 21:00 Methylprednisolone Sodium Succinate (Solu-Medrol) 20 mg QAM IV Last administered on 08/01/18at 08:12; Admin Dose 20 MG; Start 08/01/18 at 09:00 Losartan Potassium (Cozaar) 50 mg BID PO Last administered on 08/01/18 08:12; Admin Dose 50 MG; Start 08/01/18 at 09:00 Nifedipine (Procardia Xl) 60 mg BID PO ; Start 08/01/18 at 21:00; Status BRITTNY CRUZ NP Aug 01, 2018 11:37
--- NOTE | 2018-08-01 12:16 | NUR ---
PT NOTE [facility] Patient: Tiffanie Troncoso : 1930 Age/Sex: 88/F Unit#: [id number] Room/Bed: 620/A User: Buddy Patten PT Date: 08/01/18 11:35 Type: PT Technical Record Therapy day number 3 Subjective Denies pain Pain Scale NUMERIC Pain Intensity 0 (0-10) Patient Stated Goal for Pain Relief 0 (0-10) Pain Level Comment denies pain Pre Treatment Vital Signs Stable Yes - 188/91, 60bpm Transfer Training Start Time 11:35 Supine to Sit Contact Guard Assist Transfer Sit to Stand Ability Minimum Assist Bed Mobility Sit to Supine Contact Guard Assist Bed Transfer Ability Contact Guard Assist Chair Transfer Ability Contact Guard Assist Toileting Ability Supervised Transfer Training End Time 11:53 Total Transfer Training Time 18 min (8-127) Gait Training Start Time 11:53 Gait Assist Levels Stand by Assist Assistive Devices Front Wheel Walker Ambulation Distance 180 feet Additional Gait Comments reciprocal, steady, stable, mild SOB after amb bout Gait Training End Time 12:16 Total Gait Training Treatment Time 23 min (8-127) Static Sitting Balance Good Dynamic Sitting Balance Fair plus Standing Static Balance Fair plus Dynamic Standing Balance Fair plus Additional Balance Assessments Comments FWW Safety Judgement Good Activity Tolerance Good Equipment Present IV pump Additional Equipment Present 2LO2 via NC Post Treatment Pain Intensity 0 0-10 Quality Indicators SOB Upon Exertion Total Treament Time 41 min (8-127) Total Minutes 41 Total Units 3 PT Technical Record Comment S: Pt has nothing to report, denies pain O: HEMANTH Caballero cleared pt for PT session. Pt received in bed, on 2LO2 via NC, vitals assessed at 188/91, 60bpm in semi-supie. Pt participated in interventions above. Noted BP in sitting at EOB at 186/80, 60bpm, and in standing 176/76, 68bpm. Pt returned to room requested to use commode, able to toilet with SPV. Pt returned to bed, all needs in reach, bed alarm activatd, RN notified of pt's status and high BP. A: Pt demonstrates improving independence with mobility tasks and increased endurance, able to amb 180' this date without rest breaks. Continues to require verbal cues for safety with tranfsers using FWW. P: Continue c PT POC
[2018-08-01] MEDS: ALBUTEROL 0.083% (NEB) 2.5 MG/3 ML AMP HHN SCH ×2 (14:42→22:01)
--- NOTE | 2018-08-01 17:56 | RADRPT ---
Echocardiogram Report Patient Name: MURIEL AJ D Gender: Female Date: 1930 Study Date: 01-Aug-2018 Bar Pilot: [facility] Location: 620-A Ref. Physician: BRITTNY KHAN Quality: Adequate Procedures: Transthoracic echocardiogram with complete 2D, M-Mode, and doppler examination. Indications: Evaluate Left Ventricular function. 2D/M Mode Doppler Measurement Value Normal Ranges Measurement Value Normal Ranges LVIDd 2D 4.3 3.5 - 5.6 cm AV Peak Talib 1.0 m/sec LVIDs 2D 2.8 2.1 - 4.1 cm AV Peak PG 4.0 mmHg FS 2D 34.3 % LVOT Peak Talib 0.7 m/sec LVPWd 2D 1.1 0.6 - 1.1 cm LVOT Peak PG 2.0 mmHg IVSd 2D 1.4 0.6 - 1.1 cm MV E Peak Talib 1.4 m/sec IVS/LVPW 2D 1.3 MV A Peak Talib 0.5 m/sec AoR Diam 2D 2.6 2.0 - 3.7 cm MV E/A 2.6 LA/Ao 2D 2 0 - 1 MV Decel Time 218 msec EDV 2D 80.1 cm3 MV E/A 2.6 ESV 2D 22.7 cm3 TR Peak Talib 3.0 m/sec LA Dimen 2D 3.9 2.3 - 4.0 cm TR Peak PG 36.0 mmHg RVSP 46.0 mmHg Findings Left Ventricle: Normal left ventricular systolic function. Normal left ventricular cavity size. Sigmoid septum. Ejection fraction is visually estimated at 55 %. Tissue Doppler/Mitral Doppler indices are consistent with pseudonormalization with mildly elevated left atrial pressure (Stage II diastolic dysfunction). Right Ventricle: Normal right ventricular size. Normal right ventricular systolic function. Pacemaker right heart. Left Atrium: There is mild enlargement of left atrium. Right Atrium: The right atrium is normal in size. Linear artifact in right atrium suggestive of catheter, pacer lead, or ICD lead. Mitral Valve: Mild mitral leaflet calcification. Mild mitral annular calcification. Moderate to severe mitral valve regurgitation. Aortic Valve: No significant aortic stenosis or insufficiency. Aortic cusps appear mildly calcified. Mild to moderate aortic valve regurgitation. Tricuspid Valve: Normal appearance of the tricuspid valve. Estimated peak PA systolic pressure 46 mmHg. There is mild to moderate tricuspid regurgitation. Pulmonic Valve: Pulmonic valve not well visualized. There is trace pulmonic regurgitation. Pericardium: Normal pericardium with no significant pericardial effusion. Aorta: Normal aortic root. IVC: Normal size and normal respiratory collapse consistent with normal right atrial pressure. Conclusions There is mild enlargement of left atrium. Normal left ventricular systolic function. Normal left ventricular cavity size. Sigmoid septum. Ejection fraction is visually estimated at 55 %. Tissue Doppler/Mitral Doppler indices are consistent with pseudonormalization with mildly elevated left atrial pressure (Stage II diastolic dysfunction). Mild mitral leaflet calcification. Mild mitral annular calcification. Moderate to severe mitral valve regurgitation. No significant aortic stenosis or insufficiency. Aortic cusps appear mildly calcified. Mild to moderate aortic valve regurgitation. Normal appearance of the tricuspid valve. Estimated peak PA systolic pressure 46 mmHg. There is mild to moderate tricuspid regurgitation. Electronically Signed By: Raimundo Tamayo 01-Aug-2018 17:55:16 -7600 Patient Name: MURIEL AJ D Study Date: 01-Aug-2018 [id number]
--- NOTE | 2018-08-01 18:15 | NUR ---
END OF SHIFT REPORT: Patient without new complaints. SBP still in the high 160s-170s. Patient asymptomatic. MD aware. Still short of breath with moderate exertion and desaturates on room air. Maintained on O2 at 2l/nc. Seen by PT today and tolerated ambulation around hallway with O2 on. High risk for fall and emphasized to patient the need to call if she needs to use bedside commode. Bed alarm on at all times.
[2018-08-01] MEDS: ATORVASTATIN 10 MG TAB PO SCH (21:02)
[2018-08-01] MEDS: NIFEdipine (XL) 60 MG TAB PO SCH (21:05)
[2018-08-01] MEDS: ARFORMOTEROL TARTRATE 15MCG/2 ML AMP NEB SCH (22:12)
[2018-08-02] VITALS (13 sets, daily range): BP systolic 143–169; BP diastolic 65–76; PULSE 57–68; RESP 18–20
[2018-08-02] MEDS ORDERED: hydrALAzine 20 MG INJ IV PRN (01:00)
--- NOTE | 2018-08-02 04:48 | NUR ---
RN NOTES: Patient's BP around 0030 was 185/70, no PRN BP meds, notified Dr. Barraza and obtained PRN BP med for SBP above 170. Reassessed BP before administration and patient's BP was 149/72. Will continue to monitor patient. Addendum: 08/02/18 at 0454 by GEETA RENEE RN Also notified Dr. Barraza that patient's daughter requested to have Celebrex discontinued due to kidney issues; Dr. Braraza gave order to discontinue medication. Patient's daughter requested that patient's Citric Acid should be continued, informed Dr. Barraza, and gave order to have morning nurse speak to morning team above continuing Citric Acid. Will endorse to AM nurse.
[2018-08-02] MEDS: PANTOPRAZOLE (EC) 40 MG TAB PO SCH ×2 (05:52→17:18)
--- NOTE | 2018-08-02 07:55 | NUR ---
EOSS: Patient alert and oriented. Patient tends to get out of bed right away to use bedside commode. Advised patient to call for assistance, but sometimes she does not wait. Bed alarm turned on. Hourly rounding conducted. Provided call light within reach. Patient denied any chest pain, but does get SOB upon exertion. Patient on 2L O2 nasal cannula with O2 saturation around 98%. Continue with plan of care. Endorsed to AM nurse.
[2018-08-02] MEDS: TIOTROPIUM 18 MCG CAPSULE INHA DEV INH SCH (08:14)
[2018-08-02] MEDS: METHYLPREDNISOLONE 40 MG INJ IV SCH (08:15)
[2018-08-02] MEDS: LOSARTAN 50 MG TAB PO SCH ×2 (08:16→20:06)
[2018-08-02] MEDS: METOPROLOL (XL) 100 MG TAB PO SCH ×2 (08:16→20:07)
[2018-08-02] MEDS: ASPIRIN (EC) 81 MG TAB PO SCH (08:17)
[2018-08-02] MEDS: NIFEdipine (XL) 60 MG TAB PO SCH ×2 (08:17→20:07)
[2018-08-02] MEDS: DOCUSATE SODIUM 100 MG CAP PO SCH ×2 (08:17→20:05)
[2018-08-02] MEDS: HEPARIN 5,000 UNIT/1 ML VIAL SC SCH ×2 (08:30→20:14)
[2018-08-02] MEDS: ARFORMOTEROL TARTRATE 15MCG/2 ML AMP NEB SCH ×2 (08:32→21:17)
[2018-08-02] MEDS: ALBUTEROL 0.083% (NEB) 2.5 MG/3 ML AMP HHN SCH ×3 (08:32→21:17)
--- NOTE | 2018-08-02 09:52 | PN ---
Date/Time of Note Date/Time of Note DATE: 08/02/18 TIME: 09:52 Assessment/Plan VTE Prophylaxis Risk score (from Ns)>0 risk: 4 SCD applied (from Ns): Yes Pharmacological prophylaxis: heparin Lines/Catheters IV [facility]atheter [facility] (from [facility] Saline Lock Urinary Cath still in place: No Assessment/Plan Hospital Course SUBJECTIVE: Continues to have dyspnea with minimal exertion. OBJECTIVE: Physical Exam General: Adequately build 88 year-old female lying in bed in mild respiratory distress. HEENT: Normocephalic, atraumatic. Eyes: Anicteric sclerae, conjunctivae clear. ENT: Nasal septum midline, oral mucosa moist. Neck supple, JVD noticed. Respiratory: Bilaterally diminished breath sounds. Minimal use of accessory muscles of respiration. Cardiovascular: S1, S2 heard. Regular rate and rhythm. Abdomen: Soft, nontender, and nondistended. Bowel sounds positive in all 4 quadrants. Genitourinary: Deferred. Extremities: No cyanosis, no clubbing, no edema. Peripheral pulses palpable. Neurologic: Cranial nerves II through XII grossly intact. The patient is awake, alert, and oriented. Skin: Normal skin turgor. No skin rashes. Labs & Vitals per chart ASSESSMENT & PLAN This is an 88-year-old female with past medical history of COPD, hypertension, chronic kidney disease, normocytic anemia, CVA, and history of pacemaker placement who came to the emergency room with altered level of consciousness and dyspnea, who was admitted to inpatient setting for further treatment and evaluation. 1. Acute encephalopathy. -Etiology could be toxic metabolic in origin. -Brain CT scan showing old left posterior cerebral artery territory infarct and no evidence of any acute infarcts. -Resolved. 2. COPD exacerbation. -Continue inhaled bronchodilators NIMISHA and LABA. -Continue tapering dose of steroids. -Continue inhaled anticholinergics. 3. Hypertension. -Continue antihypertensives -Adjust antihypertensives to obtain optimal blood pressure control. 4. Chronic kidney disease. -Monitor renal function closely. 5. Valvular heart disease. -Moderate to severe mitral valve regurgitation with mild to moderate aortic valve regurgitation. 6. Pulmonary hypertension. -PA systolic pressure 46 mmHg. -Most probably secondary to underlying valvular heart disease. 7. Metabolic acidosis. -Probably secondary to worsening renal function. -Resume Bicitra. 8. Normocytic anemia. -Most probably anemia of chronic disease. -Monitor H&H closely. 9. History of pacemaker. -Details unclear. -2D echocardiogram showed ejection fraction of 55%.. 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 -Continue enteric coated ASA and statins. 11. Fluids, electrolytes, and nutrition. -Low-cholesterol diet. 12. DVT prophylaxis. -Subcutaneous heparin. 13. Plan. -Continue inhaled bronchodilators. -Continue supplemental oxygen. -Await clinical improvement. -Nephrology evaluation. The patient was seen in collaboration with Dr. James. Result Diagram: [id number]/[id number] Results 24hrs Laboratory Tests Test 08/02/18 04:47 White Blood Count 9.6 # Red Blood Count 2.78 L Hemoglobin 8.6 L Hematocrit 26.2 L Mean Corpuscular Volume 94.2 Mean Corpuscular Hemoglobin 30.9 Mean Corpuscular Hemoglobin Concent 32.8 Red Cell Distribution Width 14.2 Platelet Count 172 Mean Platelet Volume 9.8 Immature Granulocytes % 0.900 H Neutrophils % 56.9 Lymphocytes % 26.8 Monocytes % 9.9 Eosinophils % 5.0 Basophils % 0.5 Nucleated Red Blood Cells % 0.0 Immature Granulocytes # 0.090 H Neutrophils # 5.5 Lymphocytes # 2.6 Monocytes # 1.0 H Eosinophils # 0.5 Basophils # 0.1 Nucleated Red Blood Cells # 0.0 Sodium Level 135 Potassium Level 4.9 Chloride Level 107 Carbon Dioxide Level 19 L Anion Gap 9 Blood Urea Nitrogen 75 H Creatinine 2.47 H Est Glomerular Filtrat Rate mL/min Glucose Level 97 Calcium Level 9.1 Phosphorus Level 5.7 H Magnesium Level 2.2 Exam/Review of Systems Vital Signs Vitals Vital Signs Date Temp Pulse Resp B/P (MAP) Pulse Ox O2 O2 Flow FiO2 Time Delivery Rate 08/02/18 62 18 100 Nasal 2.0 08:32 Cannula 08/02/18 98.0 143/65 07:39 (91) 08/02/18 28 00:27 Intake and Output 08/01/18 08/01/18 08/02/18 1515:00 23:00 07:00 IntakeIntake Total 652 ml 400 ml OutputOutput Total 800 ml BalanceBalance -148 ml 400 ml Medications Medications Current Medications IV Flush (NS 3 ml) 3 ml PER PROTOCOL IV ; Start 07/29/18 at 05:30 Ondansetron HCl (Zofran Inj) 4 mg Q6H PRN IV NAUSEA AND/OR VOMITING; Start 07/29/18 at 05:30 Acetaminophen (Tylenol Tab) 650 mg Q6H PRN PO PAIN LEVEL 1-3 OR FEVER; Start 07/29/18 at 05:30 Heparin Sodium (Porcine) (Heparin (5000 Units/1ml)) 5,000 unit Q12 SC Last administered on 08/02/18 08:30; Admin Dose 5,000 UNIT; Start 07/29/18 at 09:00 Albuterol/ Ipratropium (Duoneb) 3 ml Q2H RESP THERAPY PRN HHN SHORTNESS OF BREATH; Start 07/29/18 at 05:30 Docusate Sodium (Colace) 100 mg BID PO Last administered on 08/02/18 08:17; Admin Dose 100 MG; Start 07/29/18 at 09:00 Pantoprazole (Protonix Tab) 40 mg BID@0600,1800 PO Last administered on 05:52; Admin Dose 40 MG; Start 07/29/18 at 06:00 Atorvastatin Calcium (Lipitor) 10 mg DAILY@21 PO Last administered on 08/01/18 21:02; Admin Dose 10 MG; Start 07/29/18 at 21:00 Metoprolol Succinate (Toprol Xl) 100 mg BID PO Last administered on 08/02/18 08:16; Admin Dose 100 MG; Start 07/30/18 at 21:00 Tiotropium [place] (Spiriva) 1 inh DAILY INH Last administered on 08/02/18 08:14; Admin Dose 1 INH; Start 07/31/18 at 09:00 Hydralazine HCl (Apresoline) 100 mg BID PO Last administered on 08/02/18 08:17; Admin Dose 100 MG; Start 07/31/18 at 21:00 Methylprednisolone Sodium Succinate (Solu-Medrol) 20 mg QAM IV Last administered on 08/02/18 08:15; Admin Dose 20 MG; Start 08/01/18 at 09:00 Losartan Potassium (Cozaar) 50 mg BID PO Last administered on 08/02/18 08:16; Admin Dose 50 MG; Start 08/01/18 at 09:00 Nifedipine (Procardia Xl) 60 mg BID PO Last administered on 08/02/18 08:17; Admin Dose 60 MG; Start 08/01/18 at 21:00 Arformoterol Tartrate ([place] (Neb)) 2 ml BID RESP THERAPY NEB Last administered on 08/02/18 08:32; Admin Dose 2 ML; Start 08/01/18 at 20:00 Albuterol (Proventil 0.083% (Neb)) 2.5 mg Q6HWA RESP THERAPY HHN Last administered on 08/02/18 08:32; Admin Dose 2.5 MG; Start 08/01/18 at 14:00 Aspirin (Halfprin) 81 mg DAILY PO Last administered on 08/02/18 08:17; Admin Dose 81 MG; Start 08/02/18 at 09:00 Hydralazine HCl (Apresoline) 10 mg Q4H PRN IV ELEVATED BLOOD PRESSURE; Start 08/02/18 at 01:00 BRITTNY KHAN NP Aug 02, 2018 09:52
[2018-08-02] MEDS ORDERED: FUROSEMIDE 20 MG INJ IV ONE (10:00)
--- NOTE | 2018-08-02 10:24 | NUR ---
PT NOTE [facility] Patient: Tiffanie Troncoso : 1930 Age/Sex: 88/F Unit#: [id number] Room/Bed: 603/A User: Chelsie Worley PTA Date: 08/02/18 09:45 Type: PT Technical Record Therapy day number 4 Subjective Denies pain Pain Scale NUMERIC Pain Intensity 0 (0-10) Patient Stated Goal for Pain Relief 0 (0-10) Pain Level Comment denied pain at rest; B knee and hip pain with STS, ambulation, and stairs Pre Treatment Vital Signs Stable Yes - 150/77 mmHg, 59 bpm, 100% O2 sat on 2.5L/min via NC Transfer Training Start Time 09:45 Supine to Sit Stand by Assist Transfer Sit to Stand Ability Minimum Assist Bed Mobility Sit to Supine Stand by Assist Toileting Ability Supervised Additional Mobility Comments STS with FWW; bedside commode transfer Transfer Training End Time 10:00 Total Transfer Training Time 15 min (8-127) Gait Training Start Time 10:01 Gait Assist Levels Stand by Assist Assistive Devices Front Wheel Walker Ambulation Distance 125 feet Additional Gait Comments 125'x2,reciprocal gait,WBOS,decreased samuel,2 standing breaks for vitals Gait Training End Time 10:24 Total Gait Training Treatment Time 23 min (8-127) Stair Climbing Ability Minimum Assist Number of Stairs 3 Stairs Additional Stairs Assist Comments 2 hands on HR, sidestepping, slow, B knee pain Static Sitting Balance Good Dynamic Sitting Balance Fair plus Standing Static Balance Fair plus Dynamic Standing Balance Fair plus Additional Balance Assessments Comments with FWW Safety Judgement Good Activity Tolerance Good Equipment Present A pump Additional Equipment Present 2.5L/min via NC; 3L/min during gait training Post Treatment Pain Intensity 0 0-10 Additional Post Treatment Comment see PT note Total Treament Time 38 min (8-127) Total Minutes 38 Total Units 3 PT Technical Record Comment PT NOTE S: Pt denied any pain at rest. Agreed to skilled PT. Cleared by HEMANTH Salter. O: Received awake in semi-yousif. Pre tx vitals: 150/77 mmHg, 59 bpm, 100% O2 sat on 2.5L/min via NC. See tech record for assist levels. STS with FWW. Gait training with FWW, WBOS, reciprocal gait, decreased samuel, FWW slightly forward; standing break following 125' for vitals: 68 bpm, 99% O2 sat. Stair training x3 steps Min A, 2 hands on HR, sidestepping, pt reported B knee/hip pain, very slow. Vitals post stair trainin% O2 sat, 66 bpm. Returned back to room. Assisted to BSC; pt I with pericare. Returned back to bed. Positioned in semi-yousif, call light and all necessities within reach, SCDs on, 2.5L/min via NC donned. Pt in no apparent distress. Informed RN. A: Pt julio tx well. [place]. 3L/min via NC during activities. No c/o fatigue/dizziness throughout. B knee/hip pain during STS transfers and stair training. P: Continue with POC. Pt reports having 13 steps at home.
[2018-08-02] MEDS: CITRIC ACID/NA CITRATE 30 ML CUP PO SCH ×2 (11:30→20:05)
--- NOTE | 2018-08-02 12:18 | CONS ---
Date/Time of Note Date/Time of Note DATE: 08/02/18 TIME: 12:18 Assessment/Plan Assessment/Plan Assessment/Plan 1. acute kidney injury on CKD III due to Hemodynamics 2. Possible diastolic CHF 3. acute COPD exacerbation 4. acute encephalopathy 5. Hyponatremia 6. H/o Pacemaker placement 7. H/o HTN Plan: IV lasix 20mg iV x 1 in AM given, will reassess for lasix in AM Stop losaratn due to rising Cr, Continue Nifedipine XL 60mg ID and hydralazine 100mg TID, if neede we will add Minoxidil for BP control Renal US to assess for CKd, to rule out hydronpehrosis Uric acid with AM labs, Thanks for consultaiton, will follow up Result Diagram: 08/02/1844608/02/18446 Results 24hrs Laboratory Tests Test 08/02/18 04:47 White Blood Count 9.6 # Red Blood Count 2.78 L Hemoglobin 8.6 L Hematocrit 26.2 L Mean Corpuscular Volume 94.2 Mean Corpuscular Hemoglobin 30.9 Mean Corpuscular Hemoglobin Concent 32.8 Red Cell Distribution Width 14.2 Platelet Count 172 Mean Platelet Volume 9.8 Immature Granulocytes % 0.900 H Neutrophils % 56.9 Lymphocytes % 26.8 Monocytes % 9.9 Eosinophils % 5.0 Basophils % 0.5 Nucleated Red Blood Cells % 0.0 Immature Granulocytes # 0.090 H Neutrophils # 5.5 Lymphocytes # 2.6 Monocytes # 1.0 H Eosinophils # 0.5 Basophils # 0.1 Nucleated Red Blood Cells # 0.0 Sodium Level 135 Potassium Level 4.9 Chloride Level 107 Carbon Dioxide Level 19 L Anion Gap 9 Blood Urea Nitrogen 75 H Creatinine 2.47 H Est Glomerular Filtrat Rate mL/min Glucose Level 97 Calcium Level 9.1 Phosphorus Level 5.7 H Magnesium Level 2.2 Consultation Date/Type/Reason Admit Date/Time Jul 29, 2018 at 02:59 Date of Consultation: Aug 02, 2018 Type of Consult NEPHROLOGY Reason for Consultation Acute kidney injury on CKD , Hyponatremia Requesting Provider: BRITTNY KHAN NP Hx of Present Illness 88-year-old female with past medical history of COPD, hypertension, chronic kidney disease, normocytic anemia, CVA, and history of pacemaker placement who came to the emergency room with altered level of consciousness and dyspnea. pt was admitted for AMS, acute encephalopathy and COPD exacerbation. On Admission BUN/Cr 61/2.29, Na 132- which worsened to 75/2.47. Renal has been consulted for Yevgeniy on CKD, and Hyponatremia + SOB + leg edema and elevatred BP Constitutional: poor po Eyes: no complaints ENT: no complaints Respiratory: cough, pleuritic pain, shortness of breath Cardiovascular: no complaints Gastrointestinal: no complaints Genitourinary: no complaints Musculoskeletal: no complaints Skin: no complaints Neurologic: no complaints Endocrine: no complaints Lymphatic: no complaints Psychological: no complaints Immunologic: no complaints Past Medical History Medical History: high cholesterol, hypertension, other (COPD, CKD, H/o CVA) Medications Current Medications IV Flush (NS 3 ml) 3 ml PER PROTOCOL IV ; Start 07/29/18 at 05:30 Ondansetron HCl (Zofran Inj) 4 mg Q6H PRN IV NAUSEA AND/OR VOMITING; Start 07/29/18 at 05:30 Acetaminophen (Tylenol Tab) 650 mg Q6H PRN PO PAIN LEVEL 1-3 OR FEVER; Start 07/29/18 at 05:30 Heparin Sodium (Porcine) (Heparin (5000 Units/1ml)) 5,000 unit Q12 SC Last administered on 08/02/18at 08:30; Admin Dose 5,000 UNIT; Start 07/29/18 at 09:00 Albuterol/ Ipratropium (Duoneb) 3 ml Q2H RESP THERAPY PRN HHN SHORTNESS OF BREATH; Start 07/29/18 at 05:30 Docusate Sodium (Colace) 100 mg BID PO Last administered on 08/02/18at 08:17; Admin Dose 100 MG; Start 07/29/18 at 09:00 Pantoprazole (Protonix Tab) 40 mg BID@0600,1800 PO Last administered on 08/02/18 05:52; Admin Dose 40 MG; Start 07/29/18 at 06:00 Atorvastatin Calcium (Lipitor) 10 mg DAILY@21 PO Last administered on 08/01/18at 21:02; Admin Dose 10 MG; Start 07/29/18 at 21:00 Metoprolol Succinate (Toprol Xl) 100 mg BID PO Last administered on 08/02/18 08:16; Admin Dose 100 MG; Start 07/30/18 at 21:00 Tiotropium [place] (Spiriva) 1 inh DAILY INH Last administered on 08/02/18 08:14; Admin Dose 1 INH; Start 07/31/18 at 09:00 Hydralazine HCl (Apresoline) 100 mg BID PO Last administered on 08/02/18 08:17; Admin Dose 100 MG; Start 07/31/18 at 21:00 Methylprednisolone Sodium Succinate (Solu-Medrol) 20 mg QAM IV Last administered on 08/02/18 08:15; Admin Dose 20 MG; Start 08/01/18 at 09:00 Losartan Potassium (Cozaar) 50 mg BID PO Last administered on 08/02/18 08:16; Admin Dose 50 MG; Start 08/01/18 at 09:00 Nifedipine (Procardia Xl) 60 mg BID PO Last administered on 08/02/18 08:17; Admin Dose 60 MG; Start 08/01/18 at 21:00 Arformoterol Tartrate (Brovana (Neb)) 2 ml BID RESP THERAPY NEB Last administered on 08/02/18 08:32; Admin Dose 2 ML; Start 08/01/18 at 20:00 Albuterol (Proventil 0.083% (Neb)) 2.5 mg Q6HWA RESP THERAPY HHN Last administered on 08/02/18 08:32; Admin Dose 2.5 MG; Start 08/01/18 at 14:00 Aspirin (Halfprin) 81 mg DAILY PO Last administered on 08/02/18 08:17; Admin Dose 81 MG; Start 08/02/18 at 09:00 Hydralazine HCl (Apresoline) 10 mg Q4H PRN IV ELEVATED BLOOD PRESSURE; Start 08/02/18 at 01:00 Citric Acid/ Sodium Citrate (Bicitra) 30 ml BID PO ; Start 08/02/18 at 11:30 Allergies: Coded Allergies: No Known Allergy (Unverified , 07/29/18) Past Surgical History Past Surgical Hx: other (H/o Pacemaker placement ) Family History Significant Family History: no pertinent family hx Social History Alcohol Use: none Smoking Status: Unknown if ever smoked Drug Use: none Exam/Review of Systems Vital Signs Vitals Vital Signs Date Temp Pulse Resp B/P (MAP) Pulse Ox O2 O2 Flow FiO2 Time Delivery Rate 08/02/18 97.2 61 18 154/66 100 Nasal 11:28 (95) Cannula 08/02/18 2.0 08:32 08/02/18 28 00:27 Intake and Output 08/01/18 08/01/18 08/02/18 1515:00 23:00 07:00 IntakeIntake Total 652 ml 400 ml OutputOutput Total 800 ml BalanceBalance -148 ml 400 ml Exam Constitutional: alert Head: normocephalic Eyes: nl conjunctiva ENMT: nl external ears & nose Neck: supple, jvd Respiratory: crackles/rales, diminished breath sounds Cardiovascular: regular rate and rhythm, nl pulses Gastrointestinal: soft, non-tender, bowel sounds (+) Musculoskeletal: muscle weakness, swelling (1+ pitting edema ) Extremities: normal pulses Neurological: GARMENT STEAMER II-XII intact, nl mental status, nl speech, nl strength Skin: nl turgor Lymph: nl lymph nodes Medications Medications Current Medications IV Flush (NS 3 ml) 3 ml PER PROTOCOL IV ; Start 07/29/18 at 05:30 Ondansetron HCl (Zofran Inj) 4 mg Q6H PRN IV NAUSEA AND/OR VOMITING; Start 07/29/18 at 05:30 Acetaminophen (Tylenol Tab) 650 mg Q6H PRN PO PAIN LEVEL 1-3 OR FEVER; Start 07/29/18 at 05:30 Heparin Sodium (Porcine) (Heparin (5000 Units/1ml)) 5,000 unit Q12 SC Last administered on 08/02/18at 08:30; Admin Dose 5,000 UNIT; Start 07/29/18 at 09:00 Albuterol/ Ipratropium (Duoneb) 3 ml Q2H RESP THERAPY PRN HHN SHORTNESS OF BREATH; Start 07/29/18 at 05:30 Docusate Sodium (Colace) 100 mg BID PO Last administered on 08/02/18at 08:17; Admin Dose 100 MG; Start 07/29/18 at 09:00 Pantoprazole (Protonix Tab) 40 mg BID@0600,1800 PO Last administered on 07/13 08/30at 05:52; Admin Dose 40 MG; Start 07/29/18 at 06:00 Atorvastatin Calcium (Lipitor) 10 mg DAILY@21 PO Last administered on 08/01/18at 21:02; Admin Dose 10 MG; Start 07/29/18 at 21:00 Metoprolol Succinate (Toprol Xl) 100 mg BID PO Last administered on 08/02/18 08:16; Admin Dose 100 MG; Start 07/30/18 at 21:00 Tiotropium [place] (Spiriva) 1 inh DAILY INH Last administered on 08/02/18 08:14; Admin Dose 1 INH; Start 07/31/18 at 09:00 Hydralazine HCl (Apresoline) 100 mg BID PO Last administered on 08/02/18 08:17; Admin Dose 100 MG; Start 07/31/18 at 21:00 Methylprednisolone Sodium Succinate (Solu-Medrol) 20 mg QAM IV Last administered on 08/02/18 08:15; Admin Dose 20 MG; Start 08/01/18 at 09:00 Losartan Potassium (Cozaar) 50 mg BID PO Last administered on 08/02/18 08:16; Admin Dose 50 MG; Start 08/01/18 at 09:00 Nifedipine (Procardia Xl) 60 mg BID PO Last administered on 08/02/18 08:17; Admin Dose 60 MG; Start 08/01/18 at 21:00 Arformoterol Tartrate (Brovana (Neb)) 2 ml BID RESP THERAPY NEB Last administered on 08/02/18 08:32; Admin Dose 2 ML; Start 08/01/18 at 20:00 Albuterol (Proventil 0.083% (Neb)) 2.5 mg Q6HWA RESP THERAPY HHN Last administered on 08/02/18 08:32; Admin Dose 2.5 MG; Start 08/01/18 at 14:00 Aspirin (Halfprin) 81 mg DAILY PO Last administered on 08/02/18 08:17; Admin Dose 81 MG; Start 08/02/18 at 09:00 Hydralazine HCl (Apresoline) 10 mg Q4H PRN IV ELEVATED BLOOD PRESSURE; Start 08/02/18 at 01:00 Citric Acid/ Sodium Citrate (Bicitra) 30 ml BID PO ; Start 08/02/18 at 11:30 AMOR BREWSTER MD Aug 02, 2018 12:18
--- NOTE | 2018-08-02 18:45 | NUR ---
EOSS Patient is alert and oriented to person, place, and time. No shortness of breath noted. no complaint of pain. Patient seen by Dr. Dahl. Chairfast and assisted to bedside commode. All needs attended to and met. Kept comfortable. Call light within reach.
[2018-08-02] MEDS: ATORVASTATIN 10 MG TAB PO SCH (20:05)
[2018-08-03] VITALS (11 sets, daily range): BP systolic 143–176; BP diastolic 63–81; PULSE 59–70; RESP 18–20
[2018-08-03] MEDS: PANTOPRAZOLE (EC) 40 MG TAB PO SCH ×2 (05:27→17:37)
--- NOTE | 2018-08-03 06:52 | NUR ---
EOSS: No acute events overnight. Patient's BP was controlled overnight. Patient uses bedside commode frequently without waiting for assistance. Advised patient to use call light, but patient said she cannot wait and that she does not want to get wet. Bed alarm turned on, hourly rounding conducted. Patient kept clean and dry. AM care provided. Provided call light within reach. Patient denied any chest pain, but does get SOB from getting in and out of bed. Patient on 2L O2 nasal cannula with O2 saturation around 98%. Continue with plan of care. Endorsed to AM nurse. Addendum: 08/03/18 at 0706 by GEETA RENEE RN Will endorse to AM nurse.
--- NOTE | 2018-08-03 08:20 | CONS ---
Assessment/Plan Assessment/Plan Assessment/Plan 1. acute kidney injury on CKD III due to Hemodynamics 2. Possible diastolic CHF 3. acute COPD exacerbation 4. acute encephalopathy 5. Hyponatremia 6. H/o Pacemaker placement 7. H/o HTN Plan: BUN/Cr 72/2.52 Stop losaratn due to rising Cr, Continue Nifedipine XL 60mg ID and hydralazine 100mg TID, Follow up with me in clinic in 1-2 week will follow up Result Diagram: 08/03/18 0501 08/03/18 0502 Results 24hrs Laboratory Tests Test 08/03/18 05:01 08/03/18 05:02 White Blood Count 9.6 Red Blood Count 2.74 L Hemoglobin 8.5 L Hematocrit 26.0 L Mean Corpuscular Volume 94.9 Mean Corpuscular Hemoglobin 31.0 Mean Corpuscular Hemoglobin Concent 32.7 Red Cell Distribution Width 14.3 Platelet Count 187 Mean Platelet Volume 9.8 Immature Granulocytes % 0.700 H Neutrophils % 60.0 Lymphocytes % 22.3 Monocytes % 10.5 Eosinophils % 6.1 Basophils % 0.4 Nucleated Red Blood Cells % 0.0 Immature Granulocytes # 0.070 H Neutrophils # 5.7 Lymphocytes # 2.1 Monocytes # 1.0 H Eosinophils # 0.6 H Basophils # 0.0 Nucleated Red Blood Cells # 0.0 Uric Acid 7.7 B-Type Natriuretic Peptide 97804 H Sodium Level 139 Potassium Level 5.2 H Chloride Level 103 Carbon Dioxide Level 20 L Anion Gap 16 #H Blood Urea Nitrogen 72 H Creatinine 2.52 H Est Glomerular Filtrat Rate mL/min Glucose Level 98 Calcium Level 9.4 Phosphorus Level 5.6 H Magnesium Level 2.2 Consultation Date/Type/Reason Admit Date/Time Jul 29, 2018 at 02:59 Initial Consult Date 08/02/18 Type of Consult NEPHROLOGY Requesting Provider: BRITTNY KHAN MILLING MACHINIST Exam/Review of Systems Vital Signs Vitals Vital Signs Date Temp Pulse Resp B/P (MAP) Pulse Ox O2 O2 Flow FiO2 Time Delivery Rate 08/03/18 63 08:18 08/03/18 Nasal 2.0 07:46 Cannula 08/03/18 97.6 20 173/81 100 07:11 (111) 08/02/18 28 00:27 Intake and Output 08/02/18 08/02/18 08/03/18 1515:00 23:00 07:00 IntakeIntake Total 600 ml 400 ml BalanceBalance 600 ml 400 ml Exam Constitutional: alert Respiratory: crackles/rales, diminished breath sounds Cardiovascular: regular rate and rhythm, nl pulses Gastrointestinal: soft, non-tender, bowel sounds (+) Musculoskeletal: muscle weakness, swelling (1+ pitting edema ) Medications Medications Current Medications IV Flush (NS 3 ml) 3 ml PER PROTOCOL IV ; Start 07/29/18 at 05:30 Ondansetron HCl (Zofran Inj) 4 mg Q6H PRN IV NAUSEA AND/OR VOMITING; Start 07/29/18 at 05:30 Acetaminophen (Tylenol Tab) 650 mg Q6H PRN PO PAIN LEVEL 1-3 OR FEVER; Start 07/29/18 at 05:30 Heparin Sodium (Porcine) (Heparin (5000 Units/1ml)) 5,000 unit Q12 SC Last administered on 08/02/18 20:14; Admin Dose 5,000 UNIT; Start 07/29/18 at 09:00 Albuterol/ Ipratropium (Duoneb) 3 ml Q2H RESP THERAPY PRN HHN SHORTNESS OF MIKO ATH; Start 07/29/18 at 05:30 Docusate Sodium (Colace) 100 mg BID PO Last administered on 08/02/18 20:05; Admin Dose 100 MG; Start 07/29/18 at 09:00 Pantoprazole (Protonix Tab) 40 mg BID@0600,1800 PO Last administered on 08/03/18 05:27; Admin Dose 40 MG; Start 07/29/18 at 06:00 Atorvastatin Calcium (Lipitor) 10 mg DAILY@21 PO Last administered on 08/02/18 20:05; Admin Dose 10 MG; Start 07/29/18 at 21:00 Metoprolol Succinate (Toprol Xl) 100 mg BID PO Last administered on 08/02/18 20:07; Admin Dose 100 MG; Start 07/30/18 at 21:00 Tiotropium [place] (Spiriva) 1 inh DAILY INH Last administered on 08/02/18 08:14; Admin Dose 1 INH; Start 07/31/18 at 09:00 Hydralazine HCl (Apresoline) 100 mg BID PO Last administered on 08/02/18 20:08; Admin Dose 100 MG; Start 07/31/18 at 21:00 Methylprednisolone Sodium Succinate (Solu-Medrol) 20 mg QAM IV Last administered on 08/02/18at 08:15; Admin Dose 20 MG; Start 08/01/18 at 09:00 Nifedipine (Procardia Xl) 60 mg BID PO Last administered on 08/02/18at 20:07; Admin Dose 60 MG; Start 08/01/18 at 21:00 Arformoterol Tartrate (Brovana (Neb)) 2 ml BID RESP THERAPY NEB Last administered on 08/02/18at 21:17; Admin Dose 2 ML; Start 08/01/18 at 20:00 Albuterol (Proventil 0.083% (Neb)) 2.5 mg Q6HWA RESP THERAPY HHN Last administered on 08/02/18at 21:17; Admin Dose 2.5 MG; Start 08/01/18 at 14:00 Aspirin (Halfprin) 81 mg DAILY PO Last administered on 08/02/18at 08:17; Admin Dose 81 MG; Start 08/02/18 at 09:00 Hydralazine HCl (Apresoline) 10 mg Q4H PRN IV ELEVATED BLOOD PRESSURE; Start 08/02/18 at 01:00 Citric Acid/ Sodium Citrate (Bicitra) 30 ml BID PO Last administered on 08/02/18at 20:05; Admin Dose 30 ML; Start 08/02/18 at 11:30 Date/Time of Note Date/Time of Note DATE: 08/03/18 TIME: 08:20 AMOR BREWSTER MD Aug 03, 2018 08:20
[2018-08-03] MEDS: METHYLPREDNISOLONE 40 MG INJ IV SCH (08:27)
[2018-08-03] MEDS: NIFEdipine (XL) 60 MG TAB PO SCH ×2 (08:28→20:27)
[2018-08-03] MEDS: DOCUSATE SODIUM 100 MG CAP PO SCH ×2 (08:29→20:28)
[2018-08-03] MEDS: METOPROLOL (XL) 100 MG TAB PO SCH ×2 (08:29→20:27)
[2018-08-03] MEDS ORDERED: FUROSEMIDE 20 MG INJ IV ONE (08:30)
[2018-08-03] MEDS: HEPARIN 5,000 UNIT/1 ML VIAL SC SCH ×2 (08:42→20:26)
[2018-08-03] MEDS ORDERED: SODIUM POLYSTYRENE 15 GM KIT (POWDER + SORBITOL) PO SCH (09:00)
[2018-08-03] MEDS: ALBUTEROL 0.083% (NEB) 2.5 MG/3 ML AMP HHN SCH ×3 (09:03→20:42)
[2018-08-03] MEDS: ARFORMOTEROL TARTRATE 15MCG/2 ML AMP NEB SCH ×2 (09:03→20:00)
[2018-08-03] MEDS: TIOTROPIUM 18 MCG CAPSULE INHA DEV INH SCH (09:34)
[2018-08-03] MEDS: ASPIRIN (EC) 81 MG TAB PO SCH (09:35)
[2018-08-03] MEDS: CITRIC ACID/NA CITRATE 30 ML CUP PO SCH ×3 (09:35→20:24)
--- NOTE | 2018-08-03 11:25 | NUR ---
Therapy day number 5 Subjective Denies pain Pain Scale NUMERIC Pain Intensity 0 (0-10) Patient Stated Goal for Pain Relief 0 (0-10) Pain Level Comment denies pain Pre Treatment Vital Signs Stable Yes Supine to Sit Modified Independent Transfer Sit to Stand Ability Modified Independent Bed Mobility Sit to Supine Minimum Assist Bed Transfer Ability Modified Independent Chair Transfer Ability Modified Independent Additional Mobility Comments with FWW, min A back to bed due to IV Gait Training Start Time 11:25 Gait Assist Levels Modified Independent Assistive Devices Front Wheel Walker Ambulation Distance 500 feet Additional Gait Comments slow samuel, no loss of balance Gait Training End Time 11:50 Total Gait Training Treatment Time 25 min (8-127) Stair Climbing Ability Modified Independent Number of Stairs 3 Stairs Additional Stairs Assist Comments use of L railing, slow samuel, sidestepping Static Sitting Balance Good Dynamic Sitting Balance Good Standing Static Balance Good Dynamic Standing Balance Good Additional Balance Assessments Comments good with use of FWW Safety Judgement Good Activity Tolerance Good Equipment Present A pump IV pump Post Treatment Pain Intensity 0 0-10 Additional Post Treatment Comment See note Total Treament Time 25 min (8-127) Total Minutes 25 Total Units 2 PT Technical Record Comment S: Pt in bed, agreeable to PT intervention. Pt cleared for activity per RN O: PT intervention completed, pt returned back to bed following therapy intervention with call light within reach and bed alarm activated. Spoke to RN regarding pt response to activity and PT plan of care. No reports of pain, dizziness, or shortness of breath with activity, vitals stable. Patient left in direct care of RN A: Patient presents with improved mobility throughout compared to initial evaluation. Patient receptive to instruction and demonstrates good endurance. With stair training, patient demonstrates proper sequencing with no safety concerns. Pt requires increased time but mod I throughout with use of FWW. Patient appears at baseline functional mobility, as such no skilled physical therapy required at this time. P: Discharge physical therapy
[2018-08-03] MEDS ORDERED: METO-336 PO (16:05)
[2018-08-03] MEDS ORDERED: BICS PO (16:05)
--- NOTE | 2018-08-03 16:08 | PDOCDIS ---
Discharge Instructions CONDITION [id number] Patient Condition: [id number] Stable HOME CARE INSTRUCTIONS: [id number] Diet Instructions: [id number] Low Fat /Cholesterol FOLLOW UP/APPOINTMENTS Follow-up Plan Jarred Dahl MD Specialty:Nephrology Office Address Jarred Dahl M.D., [facility] [id number] [address] Office OTHER ORDERS: Other Orders: 1. Resume home medications except Losartan and Coreg. 2. Start taking Toprol XL and increased dose of nifedipine. 3. Take a low potassium diet. 4. Resume pre-hospitalization activities. 5. Please follow-up with Dr. Dahl (nephrology) in 2 weeks. 6. Please go to the nearest ER if you have any significant shortness of breath or chest pain. BRITTNY KHAN NP Aug 03, 2018 16:08
[2018-08-03] MEDS ORDERED: ALBU8.5H8 INH (16:15)
[2018-08-03] MEDS ORDERED: NIFEdipine (XL) PO (16:15)
--- NOTE | 2018-08-03 16:20 | DS ---
Date/Time of Note Date/Time of Note DATE: 08/03/18 TIME: 16:20 Discharge Summary Admission/Discharge Info Admit Date/Time Jul 29, 2018 at 02:59 Discharge Date/Time Discharge Diagnosis 1. Acute encephalopathy. Resolved. 2. COPD exacerbation. 3. Hypertension. 4. Chronic kidney disease. 5. Valvular heart disease. Moderate to severe mitral valve regurgitation with mild to moderate aortic valve regurgitation. 6. Pulmonary hypertension. PA systolic pressure 46 mmHg. 7. Metabolic acidosis. 8. Normocytic anemia. 9. History of permanent pacemaker. 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 Patient Condition: Stable Consults 1. Jarred Dahl MD, Nephrology. Procedures 2D Echocardiogram Conclusions There is mild enlargement of left atrium. Normal left ventricular systolic function. Normal left ventricular cavity size. Sigmoid septum. Ejection fraction is visually estimated at 55 %. Tissue Doppler/Mitral Doppler indices are consistent with pseudonormalization with mildly elevated left atrial pressure (Stage II diastolic dysfunction). Mild mitral leaflet calcification. Mild mitral annular calcification. Moderate to severe mitral valve regurgitation. No significant aortic stenosis or insufficiency. Aortic cusps appear mildly calcified. Mild to moderate aortic valve regurgitation. Normal appearance of the tricuspid valve. Estimated peak PA systolic pressure 46 mmHg. There is mild to moderate tricuspid regurgitation. Hx of Present Illness This is an 88-year-old female with past medical history of COPD, hypertension, chronic kidney disease, normocytic anemia, CVA, and history of pacemaker placement who came to the emergency room with altered level of consciousness and dyspnea, who was admitted to inpatient setting for further treatment and evaluation. Hospital Course The patient was admitted to inpatient setting. The patient's clinical presentation was extensively evaluated. The patient's acute encephalopathy could have been most probably toxic metabolic in origin. The patient's brain CT scan was not showing any new infarcts. The patient was also noticed to have COPD. The patient had evidence of COPD exacerbation. She was maintained on inhaled bronchodilators both NIMISHA and LABA. She was maintained on tapering dose of steroids and inhaled anticholinergics. The patient remained hypoxic and dependent on supplemental oxygen throughout the majority of the patient's hospital stay. On the day of discharge, the patient underwent a room air ABG that was showing a PO2 level of 85%. Therefore, the patient is not a candidate for any home oxygen. The patient has underlying essential hypertension. The patient's antihypertensives were adjusted multiple times to obtain optimal blood pressure control. The patient has underlying chronic kidney disease. The patient was followed by nephrology. Nephrotoxic drugs were used with caution. The patient also had evidence of an underlying metabolic acidosis, most probably secondary to worsening renal function. The patient was maintained on Bicitra. The patient also had evidence of valvular heart disease with moderate to severe mitral valve regurgitation with mild to moderate aortic valve regurgitation. The patient also had evidence of pulmonary hypertension with a PA systolic pressure 46 mmHg. The patient has a permanent pacemaker. Details of this is unclear. The patient's 2D echocardiogram was showing ejection fraction of 55%. The patient has a history of a chronic left posterior cerebral artery stroke. The patient was maintained on enteric-coated aspirin and statins. The patient also had a normocytic anemia. The patient's H&H remained stable. This could be anemia of chronic kidney disease. The patient was evaluated by physical therapy and she underwent multiple physical therapy sessions and on the day of discharge, physical therapy docu mented that the patient is back to her baseline. The patient had a stable but prolonged hospital course because of the slow imp rovement in the patient's clinical condition. Discharge Instructions 1. Resume home medications except Losartan and Coreg. 2. Start taking Toprol XL and increased dose of nifedipine. 3. Take a low potassium diet. 4. Resume pre-hospitalization activities. 5. Please follow-up with Dr. Dahl (nephrology) in 2 weeks. 6. Please go to the nearest ER if you have any significant shortness of breath or chest pain. The patient verbalized understanding of the discharge instructions. I would like to thank all the consultants for seeing the patient and providing clinical recommendations The patient was seen in collaboration with Dr. James. Home Meds Active Scripts Albuterol Sulfate* (Proair HFA*) 8.5 Gm Hfa.aer.ad, 2 PUFF INH Q6 for SOB, #1 INHALER Prov:BRITTNY KHAN NP 08/03/18 [NIFEdipine (XL)] 60 MG TABSR No Conflict Check, 60 MG PO BID, #60 Prov:BRITTNY KHAN NP 08/03/18 Citric Acid/Sodium Citrate* (Bicitra* (PEDIATRIC)) 1 Meq/Ml Soln, 30 ML PO TID, #45 Prov:BRITTNY KHAN NP 08/03/18 Metoprolol Succinate* (Toprol XL*) 100 Mg Tab.sr.24h, 100 MG PO BID, #60 Prov:BRITTNY KHAN ART DISPLAY MAKER 08/03/18 Reported Medications Hydralazine Hcl* (Hydralazine Hcl*) 50 Mg Tab, 50 MG PO TID, #90 TAB 07/29/18 Simvastatin* (Zocor*) 20 Mg Tablet, 20 MG PO QHS, #30 TAB 07/29/18 Docusate Sodium* (Docusate Sodium*) 100 Mg Capsule, 100 MG PO BID, #60 CAP 07/29/18 Omeprazole* (Omeprazole*) 20 Mg Capsule.dr, 20 MG PO BID, #60 CAP 07/29/18 Discontinued Reported Medications Citric Acid Monohydrate (Citric Acid) 100 Gm Granules, 15 ML MC 07/29/18 Nifedipine* (Nifedipine ER*) 30 Mg Tablet.sa, 30 MG PO DAILY, TAB.SA 07/29/18 Losartan Potassium* (Losartan Potassium*) 25 Mg Tablet, 25 MG PO DAILY, TAB 07/29/18 Carvedilol* (Carvedilol*) 25 Mg Tablet, 25 MG PO BID, #60 TAB 07/29/18 Follow-up Plan Jarred Dahl MD Specialty:Nephrology Office Address Jarred Dahl M.D., [address] [address] Office Primary Care Provider Not On Staff Doctor Pending Labs Laboratory Tests Test 08/03/18 05:01 08/03/18 05:02 08/03/18 14:00 White Blood Count 9.6 10^3/ul (4.8-10.8) Red Blood Count 2.74 10^6/ul (4.20-5.40) Hemoglobin 8.5 g/dl (12.0-16.0) Hematocrit 26.0 % (37.0-47.0) Mean Corpuscular 94.9 Volume fl (82.0-101.0) Mean Corpuscular 31.0 pg (29.0-33.0) Hemoglobin Mean Corpuscular 32.7 Hemoglobin Concent g/dl (32.0-37.0) Red Cell 14.3 % (11.5-14.5) Distribution Width Platelet Count 187 10^3/UL (140-415) Mean Platelet 9.8 fl (7.4-10.4) Volume Immature 0.700 Granulocytes % % (0.001-0.429) Neutrophils % 60.0 % (39.0-77.0) Lymphocytes % 22.3 % (15.0-51.0) Monocytes % 10.5 % (0.0-11.0) Eosinophils % 6.1 % (0.0-7.0) Basophils % 0.4 % (0.0-2.0) Nucleated Red Blood 0.0 Cells % /100WBC (0.0-0.0) Immature 0.070 Granulocytes # 10^3/ul (0.0-0.031) Neutrophils # 5.7 10^3/ul (1.6-7.5) Lymphocytes # 2.1 10^3/ul (0.8-2.9) Monocytes # 1.0 10^3/ul (0.3-0.9) Eosinophils # 0.6 10^3/ul (0.0-0.5) Basophils # 0.0 10^3/ul (0.0-0.1) Nucleated Red Blood 0.0 Cells # 10^3/ul (0.0-0.0) Uric Acid 7.7 mg/dl (3.1-7.9) B-Type Natriuretic 20172 PG/ML (0-450) Peptide Sodium Level 139 mmol/L (135-144) Potassium Level 5.2 mmol/L (3.5-5.1) Chloride Level 103 mmol/L (97-110) Carbon Dioxide 20 mmol/L (21-31) Level Anion Gap 16 (5-13) Blood Urea 72 mg/dl (7-20) Nitrogen Creatinine 2.52 mg/dl (0.44-1.00) Est Glomerular mL/min (>60) Filtrat Rate mL/min Glucose Level 98 mg/dl (70-220) Calcium Level 9.4 mg/dl (8.4-10.2) Phosphorus Level 5.6 mg/dl (2.5-4.9) Magnesium Level 2.2 mg/dl (1.7-2.5) Blood Gas Specimen Blood arterial Source Arterial Blood Date 08/03/2018 2:43:19 Drawn PM Arterial Blood pH 7.384 (7.350-7.450 (Temp corrected) ) Arterial Blood pCO2 30.9 mmhg (35-45) (Temp correct) Arterial Blood pO2 85.0 (Temp corrected) mmHG (80-90.0) Arterial Blood 18.0 HCO3 mmol/L (22.0-26.0) Arterial Blood Base -6.1 Excess mmol/L (-3.0-3) Arterial Blood 95.7 Oxygen Saturation mmHG (95.0-100.0) Eduardo Test ACCEPTAB Arterial Blood Gas Right Radial Puncture Site Arterial 0.3 % (0.0-3.0) Blood Carboxyhemogl obin Arterial Blood 0.3 % (0.0-1.5) Methemoglobin Blood Gas A-a O2 27.7 Differential mmHg (7.0-24.0) Oxyhemoglobin 95.1 % (93.0-99.0) Percent Blood Gas 37.0 C Temperature Blood Gas Modality ROOM AIR FiO2 21.0 % Blood Gas Notified TM Whom Blood Gas Notified 08/03/2018 2:51:50 Time PM BRITTNY KHAN NP Aug 03, 2018 16:20
--- NOTE | 2018-08-03 19:05 | NUR ---
Pt is alert and oriented x 3ish with [facility]. As per morning nurse, pt is ready marbin be discharged but just waiting for her daughter for pickup. Will print the d/c paper and give scripts.
[2018-08-03] MEDS: ATORVASTATIN 10 MG TAB PO SCH (20:24)
--- NOTE | 2018-08-03 21:45 | NUR ---
Pt just left the unit 10 mins ago with daughter. Accompanied by the SURVEY MANAGER via w/c to the first floor. Given noc meds, removed IV heplock, given d/c instructions and all d/c papers to the daughter as well as the script. Asked pt and the daughter if they have any questions. Both said none. All needs attended. Pt and daughter are very appreciative of the care given.
== END 2018-08-03 21:31 | disposition home or self-care (01) | DRG 190 ==
LOC: EDBD 23:17 → E/R 23:17 → TEL 07-29 02:59 → 6WM 07-29 11:43
PROVIDERS: ADMIT Internal Medicine; ATTEND Internal Medicine
DX: J44.1 Chronic obstructive pulmonary disease with (acute) exacerbation (principal); G92 Toxic encephalopathy; E87.2 Acidosis; N39.0 Urinary tract infection, site not specified; N17.9 Acute kidney failure, unspecified; E87.1 Hypo-osmolality and hyponatremia; I27.20 Pulmonary hypertension, unspecified; N18.3 Chronic kidney disease, stage 3 (moderate); D63.1 Anemia in chronic kidney disease; I12.9 Hypertensive chronic kidney disease with stage 1 through stage 4 chronic kidney disease, or unspecified chronic kidney disease; I08.0 Rheumatic disorders of both mitral and aortic valves; I25.10 Atherosclerotic heart disease of native coronary artery without angina pectoris; E78.5 Hyperlipidemia, unspecified; Z79.82 Long term (current) use of aspirin; Z95.0 Presence of cardiac pacemaker
CPT/HCPCS: 36415; 36600; 70450; 71045; 76775; 80048; 80053; 81001; 81003; 82550; 82553; 82803; 83540; 83605; 83735; 83880; 84100; 84484; 84560; 85025; 85610; 85730; 87040; 87086; 93005; 93306; 94010; 94640; 94664; 96374; 96375; 97116; 97162; 97530; J0360; J0696; J1644; J1940; J2920; J7120